=== PATIENT | male | born 1950 | race Hispanic/Latino ===

== ENCOUNTER 2019-07-24 23:12 | Inpatient (IN) | payer MEDICARE ==
[2019-07-25] MEDS ORDERED: Ondansetron ODT 4 MG TAB SL PRN (00:46)
[2019-07-25] MEDS ORDERED: Ondansetron PF 4 MG/2 ML Vial IVP PRN ×2 (00:46→01:25)
[2019-07-25] MEDS ORDERED: Acetaminophen 325 MG TAB PO PRN ×2 (00:46→01:25)
[2019-07-25 00:54] LABS: Troponin I 0.063 ng/mL (< 0.028)
[2019-07-25] MEDS ORDERED: Dextrose 50% Abboject 50 ML SYRINGE SLOW IVP PRN (01:25)
[2019-07-25] MEDS ORDERED: PROVENTIL INHALER 6.7 G (200 INHALATIONS) INH PRN (01:25)
[2019-07-25] MEDS ORDERED: HumaLOG 300 UNITS/3 ML VIAL SC PRN ×2 (01:25)
[2019-07-25] MEDS ORDERED: Guaifenesin DM 100-10/5 ML UDCUP PO PRN (01:25)
[2019-07-25] MEDS ORDERED: Senokot S 8.6-50 MG TAB PO PRN (01:25)
[2019-07-25] MEDS ORDERED: Bisacodyl 10 MG SUPP PR PRN (01:25)
[2019-07-25] MEDS ORDERED: Dextrose 5% in Water 1,000 ML IV PRN (01:25)
[2019-07-25] MEDS ORDERED: Potassium Chloride 20 MEQ TAB PO SCH (01:45)
--- NOTE | 2019-07-25 01:57 | HP ---
REASON FOR ADMISSION: Acute CHF exacerbation. HISTORY OF PRESENTING ILLNESS: The patient gives history of shortness of breath from last 3 days. He has also developed edema in lower extremities. The patient states he likes salt and usually restricts them, but for the holidays he used them. He sees Dr. Go. He has had a cardiac catheterization done in February, which was normal with no intervention done. Has cough with expectoration of white sputum. No fever. No complaints of chest pain or palpitation. Has some orthopnea at present. No PND. PAST MEDICAL AND SURGICAL HISTORY: History of CHF. The patient does not recall his ejection fraction. Hypertension, chronic atrial fibrillation, diabetes mellitus type 2. Cardiac cath in February of this year showed normal coronaries per patient, rotator cuff repair, history of colon cancer with likely hemicolectomy done in 2006, has had chemotherapy for the same and is in remission for it, osteoarthritis. CURRENT MEDICATIONS: The patient is on; 1. Hydrochlorothiazide 25 mg daily. 2. Glipizide 5 mg twice daily. 3. Fish oil 1000 mg daily. 4. Metformin 1000 mg twice daily. 5. Norvasc 10 mg daily. 6. Omeprazole 20 mg daily. 7. Atenolol 100 mg daily. 8. Xarelto 20 mg daily. 9. Hydralazine 25 mg 3 times daily. ALLERGIES: TO LEVAQUIN AND PENICILLIN. HE IS ALSO ALLERGIC TO INFLUENZA VACCINE. PERSONAL HISTORY: Quit smoking at the age of 22 years, has smoked for 10 years or so half pack a day when he was in his 20s. Does not abuse alcohol or drugs. Lives with his . FAMILY HISTORY: Both parents are . Mother at the age of 82, she had diabetes. Father at the age of 86, he had diabetes as well. The patient ambulates by himself. CODE STATUS: Full. Power of title attorney is his . REVIEW OF SYSTEMS: CONSTITUTIONAL: Negative for weight loss or gain, ability to conduct usual activities. SKIN: Negative for rash, itching. EYES: Negative for double vision, pain. ENT/MOUTH: Negative for nose bleeding, neck stiffness, pain, tenderness. CARDIOVASCULAR: Negative for palpitations, dyspnea on exertion, orthopnea. RESPIRATORY: Negative for shortness of breath, wheezing, cough, hemoptysis, fever or night sweats. GASTROINTESTINAL: Negative for poor appetite, abdominal pain, heartburn, nausea , vomiting, constipation, or diarrhea. GENITOURINARY: Negative for urgency, frequency, dysuria, nocturia. MUSCULOSKELETAL: Negative for pain, swelling. NEUROLOGIC/PSYCHIATRIC: Negative for anxiety, depression. ALLERGY/IMMUNOLOGIC: Negative for skin rash, bleeding tendency. PHYSICAL EXAMINATION: GENERAL: The patient is a 69-year-old male, who is currently not in any acute distress. VITAL SIGNS: Blood pressure 146/82, pulse 66 per minute, respiratory rate 20 per minute, temperature 99.7 degrees Fahrenheit, saturating 92% on 2 L nasal cannula. NECK: Supple. No elevated JVD. HEENT: Eyes; extraocular muscles intact. Pupils reacting to light. Oral cavity, mucous membranes are moist. No exudates or congestion. CARDIOVASCULAR: S1, S2 heard. Irregular rhythm. RESPIRATORY: Air entry 1+ bilateral. Scattered rales plus in the infrascapular area. ABDOMEN: Soft, bowel sounds heard. No tenderness, rigidity, or guarding. EXTREMITIES: 1+ peripheral edema. No calf tenderness. VASCULAR SYSTEM: Peripheral pulses 1+ bilateral. No ischemic ulcerations or gangrene. CENTRAL NERVOUS SYSTEM: No gross focal deficits noted. The patient is alert, awake, and oriented well. PSYCHIATRIC: The patient's mood is euthymic. No hallucinations or delusions. LABORATORY DATA: White count of 8.9, H and H 11 and 37, platelet count 167, MCV is 83 with 67% neutrophils. Potassium 3.3, BUN 23, creatinine 1.45, glucose 156. BNP 377, troponin I 0.01, second set 0.06. Chest x-ray done shows pulmonary vascular congestion. EKG done shows atrial fibrillation at 83 beats per minute. There is RBBB seen, also Q-waves in leads II, III, aVF and V3 to V6. CLINICAL IMPRESSION AND PLAN: The patient will be admitted to telemetry for acute congestive heart failure exacerbation, likely diastolic dysfunction. It is unclear as of now and we will obtain echo 2D Doppler for LV function. The patient will also be on Lasix 40 mg IV at 6 a.m. and 2 p.m. and small dose of aspirin. We will continue atenolol at 25 mg daily. Hold off on AVA and ARBs for now in view of creatinine 1.4, which might get worse with diuresis. We will continue aspirin, Xarelto, glipizide, metformin, DuoNeb q.6 hourly p.r.n., fish oil, and tizanidine as before. If needed, Cardiology consultation will be requested. The patient normally sees Dr. Go and he has had a recent cardiac cath done in February of this year , which was normal per patient. The patient likely needs a day or two of diuresis prior to discharge. We will continue to closely monitor him on telemetry. Job ID: [id number] [facility]
[2019-07-25] MEDS: Furosemide 40 MG/4 ML VIAL SLOW IVP SCH ×2 (04:58→14:09)
[2019-07-25 05:02] LABS: #Basophils 0.1 thou/uL (0.0-0.2); #Eosinphils 0.2 thou/uL (0.0-0.7); #Lymphocytes 2.1 thou/uL (1.20-3.40); #Monocytes 0.7 thou/uL (0.11-0.59); #Neutrophils 6.1 thou/uL (1.40-6.50); %Basophils 0.8 % (0.0-1.0); %Eosinophils 1.8 % (0.0-10.0); %Lymphocytes 22.8 % (21.0-51.0); %Monocytes 7.5 % (0.0-10.0); %Neutrophils 67.1 % (42.0-75.0); Mean Corpuscular HGB CONC 31.6 g/dL (32.0-36.0); Mean Corpuscular Hemoglobin 26.5 pg (27.0-31.0); Mean Corpuscular Volume 83.9 fL (78.0-98.0); Mean Platelet Volume 8.8 fL (7.4-10.4); Platelet Count 149 thou/uL (130-400); RBC Distribution Width 14.6 % (11.5-14.5); Red Blood Cell (RBC) Count 4.14 mill/uL (4.70-6.10); White Blood Cell (WBC) Count 9.1 thou/uL (4.8-10.8)
[2019-07-25 05:21] LABS: Anion Gap 14 mmol/L (10-20); BUN (Urea Nitrogen) 22 mg/dL (8.4-25.7); Calc. Creatinine Clearance 114 mL/min (70-130); Calcium 8.7 mg/dL (7.8-10.44); Carbon Dioxide 31 mmol/L (23-31); Chloride 101 mmol/L (98-107); Estimated GFR-MDRD 54; Glucose 154 mg/dL (83-110); Potassium 3.4 mmol/L (3.5-5.1); Sodium 143 mmol/L (136-145)
[2019-07-25] MEDS: metFORMIN 500 MG TAB PO SCH ×2 (09:02→16:16)
[2019-07-25] MEDS: Famotidine 20 MG TAB PO SCH ×2 (09:02→20:26)
[2019-07-25] MEDS: glipiZIDE 5 MG TAB PO SCH ×2 (09:03→16:16)
[2019-07-25] MEDS: Fish Oil 1,000 MG CAP PO SCH ×2 (09:03→20:26)
[2019-07-25] MEDS: Aspirin Chewable 81 MG TAB PO SCH (09:03)
[2019-07-25] MEDS: Atenolol 25 MG TAB PO SCH (09:03)
[2019-07-25] MEDS: Potassium Chloride 20 MEQ TAB PO SCH ×2 (09:03→16:16)
[2019-07-25] MEDS: Ferrous Sulfate 325 MG TAB PO SCH (09:03)
[2019-07-25] MEDS: Aspirin 81 mg Enteric Coated Tablet PO SCH (09:06)
--- NOTE | 2019-07-25 12:19 | PDOC.EVN ---
Event Note - Event Note Event Note: No new complaint. Feels better. no JVD. S1S2 Few rhonchi. Abdomen soft. +1 edema. Continue current therapy..
[2019-07-25] MEDS: Rivaroxaban 10 MG TAB PO SCH (16:16)
[2019-07-25] MEDS: tiZANidine HCl 4 MG TAB PO SCH (20:25)
[2019-07-26 04:40] LABS: Hemoglobin 10.6 g/dL (14.0-18.0); Platelet Count 134 thou/uL (130-400)
[2019-07-26] MEDS: Furosemide 40 MG/4 ML VIAL SLOW IVP SCH ×2 (05:43→14:49)
[2019-07-26] MEDS: Ferrous Sulfate 325 MG TAB PO SCH (07:59)
[2019-07-26] MEDS: Potassium Chloride 20 MEQ TAB PO SCH ×2 (07:59→17:00)
[2019-07-26] MEDS: metFORMIN 500 MG TAB PO SCH ×2 (08:00→17:00)
[2019-07-26] MEDS: glipiZIDE 5 MG TAB PO SCH ×2 (08:00→17:00)
[2019-07-26] MEDS: Aspirin 81 mg Enteric Coated Tablet PO SCH (08:56)
[2019-07-26] MEDS: Famotidine 20 MG TAB PO SCH ×2 (08:57→19:00)
[2019-07-26] MEDS: Fish Oil 1,000 MG CAP PO SCH ×2 (08:57→19:57)
[2019-07-26] MEDS: Atenolol 25 MG TAB PO SCH (08:58)
[2019-07-26] MEDS: Aspirin Chewable 81 MG TAB PO SCH (08:58)
--- NOTE | 2019-07-26 10:02 | PDOC.HOSPP ---
- Subjective Encounter Date: 07/26/19 Encounter Time: 15:20 Subjective: Patient reports markedly improved SOB since admission, was off O2 earlier and felt ok, but put back on by nurse. - Objective Vital Signs & Weight: Vital Signs (12 hours) Temp Pulse Resp BP Pulse Ox 07/26/19 07:52 98.0 F 62 19 123/66 92 L 07/26/19 04:00 97.8 F 63 25 H 142/68 H 94 L Weight Weight 333 lb 8 oz I&O: 07/25/19 07/26/19 07/27/19 06:59 06:59 06:59 Intake Total 460 1360 Output Total 500 1950 Balance -40 -590 Result Diagrams: 07/26/19 04:20 07/26/19 04:20 Additional Labs: Accuchecks 07/26/19 07/25/19 07/25/19 06:03 21:10 16:13 POC Glucose 142 H 129 H 124 H Hospitalist ROS - Review of Systems Constitutional: denies: fever, chills Respiratory: reports: cough, shortness of breath Cardiovascular: denies: chest pain, palpitations, orthopnea Gastrointestinal: denies: nausea, vomiting, abdominal pain Neurological: denies: weakness - Medication Medications: Active Medications Generic Name Dose Route Start Last Admin Trade Name Freq PRN Reason Stop Dose Admin Albuterol/Ipratropium 3 ml 07/25/19 01:25 07/25/19 19:43 Duoneb NEB 3 ml [id number] PRN Administration SOB &/or Wheezing Aspirin 81 mg 07/25/19 09:00 07/26/19 08:56 Ecotrin PO Not Given DAILY TATUM Aspirin 81 mg 07/25/19 09:00 07/26/19 08:58 Aspirin Chewable PO 81 mg DAILY TATUM Administration Atenolol 25 mg 07/25/19 09:00 07/26/19 08:58 Tenormin PO 25 mg DAILY TATUM Administration Famotidine 20 mg 07/25/19 09:00 07/26/19 08:57 Pepcid PO 20 mg BID TATUM Administration Ferrous Sulfate 325 mg 07/25/19 08:00 07/26/19 07:59 Feosol PO 325 mg QAM-WM TATUM Administration Fish Oil 1,000 mg 07/25/19 09:00 07/26/19 08:57 Fish Oil PO 1,000 mg BID TATUM Administration Furosemide 40 mg 07/25/19 06:00 07/26/19 05:43 Lasix SLOW IVP 40 mg 0600,1400 TATUM Administration Glipizide 5 mg 07/25/19 07:30 07/26/19 08:00 Glucotrol PO 5 mg BID-AC TATUM Administration Metformin HCl 1,000 mg 07/25/19 08:00 07/26/19 08:00 Glucophage PO 1,000 mg BID-WM TATUM Administration Potassium Chloride 20 meq 07/25/19 08:00 07/26/19 07:59 K-Dur PO 20 meq BID-WM TATUM Administration Rivaroxaban 20 mg 07/25/19 17:00 07/25/19 16:16 Xarelto PO 20 mg 1700 TATUM Administration Tizanidine HCl 8 mg 07/25/19 21:00 07/25/19 20:25 Zanaflex PO 8 mg HS TATUM Administration - Exam General Appearance: NAD Eye: anicteric sclera ENT: moist mucosa Heart: no murmur, no gallops, no rubs, irregular Respiratory: CTAB, no wheezes, no rales, no ronchi, normal chest expansion, no tachypnea Gastrointestinal: soft, non-tender, non-distended, normal bowel sounds Gastrointestinal - other findings: obese Psychiatric: normal affect, normal behavior, A&O x 3 Hosp A/P (1) Acute on chronic diastolic (congestive) heart failure Code(s): I50.33 - ACUTE ON CHRONIC DIASTOLIC (CONGESTIVE) HEART FAILURE Status : Acute (2) Chronic renal failure, stage 2 (mild) Code(s): N18.2 - CHRONIC KIDNEY DISEASE, STAGE 2 (MILD) Status: Chronic (3) Paroxysmal atrial fibrillation Code(s): I48.0 - PAROXYSMAL ATRIAL FIBRILLATION Status: Chronic (4) Chronic anticoagulation Code(s): Z79.01 - SPECIAL LIBRARIAN (CURRENT) USE OF ANTICOAGULANTS Status: Chronic (5) Diabetes type 2, controlled Code(s): E11.9 - TYPE 2 DIABETES MELLITUS WITHOUT COMPLICATIONS Status: Chronic (6) Hypertension Code(s): I10 - ESSENTIAL (PRIMARY) HYPERTENSION Status: Chronic - Plan out of bed/ambulate ECHO with normal EF, CHF is diastolic, improving with diuresis Creatinine at baseline and stable with diuresis, can institute AVA-I/ARB Home when back to baseline function, isn't usually on home O2
[2019-07-26] MEDS ORDERED: Losartan 25 MG TAB PO SCH (10:15)
[2019-07-26] MEDS: Rivaroxaban 10 MG TAB PO SCH (16:59)
[2019-07-26] MEDS: tiZANidine HCl 4 MG TAB PO SCH (19:58)
[2019-07-27 05:11] LABS: Anion Gap 11 mmol/L (10-20); BUN (Urea Nitrogen) 26 mg/dL (8.4-25.7); Calc. Creatinine Clearance 114 mL/min (70-130); Calcium 8.3 mg/dL (7.8-10.44); Carbon Dioxide 36 mmol/L (23-31); Chloride 97 mmol/L (98-107); Estimated GFR-MDRD 56; Glucose 135 mg/dL (83-110); Potassium 3.6 mmol/L (3.5-5.1); Sodium 140 mmol/L (136-145)
[2019-07-27] MEDS: Furosemide 40 MG/4 ML VIAL SLOW IVP SCH ×2 (05:52→14:42)
[2019-07-27 06:04] VITALS: BMI 42.5
[2019-07-27] MEDS: glipiZIDE 5 MG TAB PO SCH ×3 (07:22→16:39)
[2019-07-27] MEDS: Potassium Chloride 20 MEQ TAB PO SCH ×2 (07:22→16:38)
[2019-07-27] MEDS: metFORMIN 500 MG TAB PO SCH ×2 (07:22→16:38)
[2019-07-27] MEDS: Ferrous Sulfate 325 MG TAB PO SCH (07:22)
--- NOTE | 2019-07-27 08:52 | PDOC.HOSPP ---
- Subjective Encounter Date: 07/27/19 Encounter Time: 12:00 Subjective: Patient feeling better and off O2. Was having some pulses in the 50s and 60s over night, but higher this AM. - Objective Vital Signs & Weight: Vital Signs (12 hours) Temp Pulse Resp BP Pulse Ox 07/27/19 07:15 97.6 F 92 15 137/63 96 07/27/19 03:42 98.1 F 56 L 23 H 116/58 L 95 Weight Weight 331 lb I&O: 07/26/19 07/27/19 07/28/19 06:59 06:59 06:59 Intake Total 1360 950 Output Total 1950 1800 Balance -590 -850 Result Diagrams: 07/26/19 04:20 07/27/19 04:34 Additional Labs: Accuchecks 07/27/19 07/26/19 07/26/19 06:15 21:24 16:54 POC Glucose 129 H 138 H 126 H 07/26/19 10:29 POC Glucose 155 H Hospitalist ROS - Review of Systems Constitutional: denies: fever, chills Respiratory: denies: cough, dry, shortness of breath Cardiovascular: denies: chest pain, palpitations, orthopnea Gastrointestinal: denies: nausea, vomiting, abdominal pain - Medication Medications: Active Medications Generic Name Dose Route Start Last Admin Trade Name Freq PRN Reason Stop Dose Admin Albuterol/Ipratropium 3 ml 07/25/19 01:25 07/25/19 19:43 Duoneb NEB 3 ml [id number] PRN Administration SOB &/or Wheezing Aspirin 81 mg 07/25/19 09:00 07/26/19 08:56 Ecotrin PO Not Given DAILY TATUM Aspirin 81 mg 07/25/19 09:00 07/26/19 08:58 Aspirin Chewable PO 81 mg DAILY TATUM Administration Atenolol 25 mg 07/25/19 09:00 07/26/19 08:58 Tenormin PO 25 mg DAILY TATUM Administration Famotidine 20 mg 07/25/19 09:00 07/26/19 19:00 Pepcid PO 20 mg BID TATUM Administration Ferrous Sulfate 325 mg 07/25/19 08:00 07/27/19 07:22 Feosol PO 325 mg QAM-WM TATUM Administration Fish Oil 1,000 mg 07/25/19 09:00 07/26/19 19:57 Fish Oil PO 1,000 mg BID TATUM Administration Furosemide 40 mg 07/25/19 06:00 07/27/19 05:52 Lasix SLOW IVP 40 mg 0600,1400 TATUM Administration Glipizide 5 mg 07/25/19 07:30 07/27/19 07:22 Glucotrol PO 5 mg BID-AC TATUM Administration Metformin HCl 1,000 mg 07/25/19 08:00 07/27/19 07:22 Glucophage PO 1,000 mg BID-WM TATUM Administration Potassium Chloride 20 meq 07/25/19 08:00 07/27/19 07:22 K-Dur PO 20 meq BID-WM TATUM Administration Rivaroxaban 20 mg 07/25/19 17:00 07/26/19 16:59 Xarelto PO 20 mg 1700 TATUM Administration Tizanidine HCl 8 mg 07/25/19 21:00 07/26/19 19:58 Zanaflex PO 4 mg HS TATUM Administration - Exam General Appearance: NAD, awake alert Eye: anicteric sclera Heart: no murmur, no gallops, irregular Respiratory: CTAB, no wheezes, no rales, no ronchi Gastrointestinal: soft, non-tender, non-distended, normal bowel sounds Extremities: no edema Psychiatric: normal affect, normal behavior, A&O x 3 Hosp A/P (1) Acute on chronic diastolic (congestive) heart failure Code(s): I50.33 - ACUTE ON CHRONIC DIASTOLIC (CONGESTIVE) HEART FAILURE Status : Acute (2) Chronic renal failure, stage 2 (mild) Code(s): N18.2 - CHRONIC KIDNEY DISEASE, STAGE 2 (MILD) Status: Chronic (3) Paroxysmal atrial fibrillation Code(s): I48.0 - PAROXYSMAL ATRIAL FIBRILLATION Status: Chronic (4) Chronic anticoagulation Code(s): Z79.01 - DATACAP DEVELOPER (CURRENT) USE OF ANTICOAGULANTS Status: Chronic (5) Diabetes type 2, controlled Code(s): E11.9 - TYPE 2 DIABETES MELLITUS WITHOUT COMPLICATIONS Status: Chronic (6) Hypertension Code(s): I10 - ESSENTIAL (PRIMARY) HYPERTENSION Status: Chronic - Plan ECHO with normal EF, CHF is diastolic, improving with diuresis Creatinine at baseline and stable with diuresis, can institute AVA-I/ARB Home when back to baseline function, isn't usually on home O2 HR Mostly running low 60s, 50s once, with jumps to 90s. On atenolol at home which has been held since admit. Will try low dose Carvedilol instead and see if tolerates to control afib before d/c Likely home tomorrow and f/u with Abbi as outpatient.
[2019-07-27] MEDS ORDERED: Carvedilol 3.125 MG TAB PO SCH (09:00)
[2019-07-27] MEDS: Famotidine 20 MG TAB PO SCH ×2 (09:53→21:43)
[2019-07-27] MEDS: Atenolol 25 MG TAB PO SCH (09:53)
[2019-07-27] MEDS: Aspirin 81 mg Enteric Coated Tablet PO SCH (09:53)
[2019-07-27] MEDS: Losartan 25 MG TAB PO SCH (09:53)
[2019-07-27] MEDS: Fish Oil 1,000 MG CAP PO SCH ×2 (09:54)
[2019-07-27] MEDS: Aspirin Chewable 81 MG TAB PO SCH (09:55)
[2019-07-27] MEDS: Rivaroxaban 10 MG TAB PO SCH (16:38)
[2019-07-27] MEDS: Carvedilol 3.125 MG TAB PO SCH (16:39)
[2019-07-27] MEDS ORDERED: tiZANidine HCl 4 MG TAB PO SCH (22:00)
[2019-07-27] MEDS: tiZANidine HCl 4 MG TAB PO SCH (22:25)
[2019-07-28] MEDS: Furosemide 40 MG/4 ML VIAL SLOW IVP SCH (06:30)
--- NOTE | 2019-07-28 08:39 | PDOC.HOSPP ---
- Subjective Encounter Date: 07/28/19 Encounter Time: 09:00 Subjective: Patient without complaints. Ambulating the hallway without O2. Pulse holding up on carvedilol - Objective Vital Signs & Weight: Vital Signs (12 hours) Temp Pulse Resp BP Pulse Ox 07/28/19 03:26 98.4 F 76 20 148/65 H 95 Weight Weight 324 lb 3.2 oz I&O: 07/27/19 07/28/19 07/29/19 06:59 06:59 06:59 Intake Total 950 1200 Output Total 1800 1425 Balance -850 -225 Result Diagrams: 07/26/19 04:20 07/27/19 04:34 Additional Labs: Accuchecks 07/28/19 07/27/19 07/27/19 05:24 20:35 16:56 POC Glucose 103 180 H 123 H 07/27/19 10:38 POC Glucose 141 H Hospitalist ROS - Review of Systems Constitutional: denies: fever, chills Respiratory: denies: cough, shortness of breath Cardiovascular: denies: chest pain, palpitations Gastrointestinal: denies: nausea, vomiting, abdominal pain Neurological: denies: weakness - Medication Medications: Active Medications Generic Name Dose Route Start Last Admin Trade Name Freq PRN Reason Stop Dose Admin Albuterol/Ipratropium 3 ml 07/25/19 01:25 07/25/19 19:43 Duoneb NEB 3 ml [id number] PRN Administration SOB &/or Wheezing Aspirin 81 mg 07/25/19 09:00 07/27/19 09:53 Ecotrin PO 81 mg DAILY TATUM Administration Atenolol 25 mg 07/25/19 09:00 07/27/19 09:53 Tenormin PO 25 mg DAILY TATUM Administration Carvedilol 3.125 mg 07/27/19 17:00 07/27/19 16:39 Coreg PO 3.125 mg BID-WM TATUM Administration Famotidine 20 mg 07/25/19 09:00 07/27/19 21:43 Pepcid PO 20 mg BID TATUM Administration Ferrous Sulfate 325 mg 07/25/19 08:00 07/27/19 07:22 Feosol PO 325 mg QAM-WM TATUM Administration Fish Oil 1,000 mg 07/27/19 09:00 07/27/19 09:54 Fish Oil PO Not Given DAILY TATUM Furosemide 40 mg 07/25/19 06:00 07/28/19 06:30 Lasix SLOW IVP 40 mg 0600,1400 TATUM Administration Glipizide 5 mg 07/27/19 09:00 07/27/19 09:55 Glucotrol PO Not Given DAILY TATUM Losartan Potassium 50 mg 07/27/19 09:00 07/27/19 09:53 Cozaar PO 50 mg DAILY TATUM Administration Metformin HCl 1,000 mg 07/25/19 08:00 07/27/19 16:38 Glucophage PO 1,000 mg BID-WM TATUM Administration Potassium Chloride 20 meq 07/25/19 08:00 07/27/19 16:38 K-Dur PO 20 meq BID-WM TATUM Administration Rivaroxaban 20 mg 07/25/19 17:00 07/27/19 16:38 Xarelto PO 20 mg 1700 TATUM Administration - Exam General Appearance: NAD Eye: anicteric sclera ENT: moist mucosa Heart: RRR, no murmur, no gallops Respiratory: CTAB, no wheezes, no rales, no ronchi Gastrointestinal: soft, non-tender, non-distended, normal bowel sounds Psychiatric: normal affect, normal behavior, A&O x 3 Hosp A/P (1) Acute on chronic diastolic (congestive) heart failure Code(s): I50.33 - ACUTE ON CHRONIC DIASTOLIC (CONGESTIVE) HEART FAILURE Status : Acute (2) Chronic renal failure, stage 2 (mild) Code(s): N18.2 - CHRONIC KIDNEY DISEASE, STAGE 2 (MILD) Status: Chronic (3) Paroxysmal atrial fibrillation Code(s): I48.0 - PAROXYSMAL ATRIAL FIBRILLATION Status: Chronic (4) Chronic anticoagulation Code(s): Z79.01 - WATER CHEMIST (CURRENT) USE OF ANTICOAGULANTS Status: Chronic (5) Diabetes type 2, controlled Code(s): E11.9 - TYPE 2 DIABETES MELLITUS WITHOUT COMPLICATIONS Status: Chronic (6) Hypertension Code(s): I10 - ESSENTIAL (PRIMARY) HYPERTENSION Status: Chronic - Plan ECHO with normal EF, CHF is diastolic, improving with diuresis Creatinine at baseline and stable with diuresis, can institute AVA-I/ARB Back on room air HR Mostly running low 60s, 50s once, with jumps to 90s. On atenolol at home which has been held since admit. Will try low dose Carvedilol instead and see if tolerates to control afib before d/c-- HR on carvedilol now in 70s to 80s Home today and f/u with Abbi as outpatient.
[2019-07-28 09:18] VITALS: BP 112/56; TEMP 98
[2019-07-28] MEDS: Carvedilol 3.125 MG TAB PO SCH (09:19)
[2019-07-28] MEDS: Potassium Chloride 20 MEQ TAB PO SCH (09:19)
[2019-07-28] MEDS: metFORMIN 500 MG TAB PO SCH (09:19)
[2019-07-28] MEDS: Aspirin 81 mg Enteric Coated Tablet PO SCH (09:19)
[2019-07-28] MEDS: Fish Oil 1,000 MG CAP PO SCH (09:19)
[2019-07-28] MEDS: Losartan 25 MG TAB PO SCH (09:20)
[2019-07-28] MEDS: Ferrous Sulfate 325 MG TAB PO SCH (09:20)
[2019-07-28] MEDS: Famotidine 20 MG TAB PO SCH (09:20)
[2019-07-28] MEDS: Atenolol 25 MG TAB PO SCH (09:21)
[2019-07-28] MEDS: glipiZIDE 5 MG TAB PO SCH (09:32)
--- NOTE | 2019-07-28 14:40 | DIS ---
DATE OF ADMISSION: 07/25/2019 DATE OF DISCHARGE: 07/28/2019 PRIMARY CARE PHYSICIAN: Dr. Yariel Hearn. REASON FOR ADMISSION: CHF exacerbation. DISCHARGE DIAGNOSES: 1. Acute on chronic diastolic congestive heart failure. 2. Chronic renal failure stage 2. 3. Paroxysmal atrial fibrillation. 4. Chronic anticoagulation. 5. Diabetes mellitus type 2, controlled. 6. Hypertension. PROCEDURES: Echocardiogram showing ejection fraction of 55% to 60%. CONSULTATIONS: None. SUMMARY OF HOSPITAL COURSE: This is a 69-year-old man with history of congestive heart failure, follows with Dr. Go. He reported 3 days of shortness of breath and lower extremity edema. He came into the hospital, was found to be in acute congestive heart failure with a brain natriuretic peptide in the 300s. He also had atrial fibrillation, but it was well controlled rate lozano. The patient was diuresed in the hospital. He had improvement in his symptoms. Eventually weaned off oxygen. He did have some low pulse. His atenolol had to be held and eventually discontinued. He was started on a low dose of carvedilol, which controlled his heart rate without causing bradycardia. On the day of discharge, the patient was ambulating well in the hallways without oxygen and is being discharged to home. DISCHARGE MANAGEMENT: Discharged to home. FOLLOWUP: Follow up with Dr. Go as previously scheduled in 7 days and with primary care physician on the 6th of this month. ACTIVITY: As tolerated. DIET: Healthy heart, low-sodium fluid-restricted diet. MEDICATIONS: 1. Carvedilol 3.125 mg twice a day, 60 tablets dispensed. 2. Furosemide 20 mg daily, 30 tablets dispensed. 3. Losartan 50 mg daily, 30 tablets dispensed. 4. Aspirin 81 mg daily. 5. Amlodipine 10 mg daily. 6. Fish oil 1000 mg daily. 7. Glipizide 5 mg daily. 8. Metformin 1000 mg twice a day. 9. Omeprazole 20 mg daily. 10. Xarelto 20 mg daily. 11. Tizanidine 8 mg p.o. at night as needed. 12. Tramadol as needed for pain. The patient is to discontinue his hydrochlorothiazide, and I believe he was on lisinopril as well, he is to discontinue that along with discontinuing his atenolol. TIME SPENT: Arranging the details of this discharge took 35 minutes. Job ID: [id number]
[2019-07-28] MEDS ORDERED: tiZANidine HCl 4 MG TAB PO SCH (21:00)
== END 2019-07-28 13:08 | disposition home or self-care (01) | DRG 291 ==
LOC: ERS 23:12 → 2NO 07-25 00:31
PROVIDERS: ADMIT Internal Medicine; ATTEND Internal Medicine
DX: I13.0 Hypertensive heart and chronic kidney disease with heart failure and stage 1 through stage 4 chronic kidney disease, or unspecified chronic kidney disease (principal); I50.33 Acute on chronic diastolic (congestive) heart failure; N18.2 Chronic kidney disease, stage 2 (mild); E11.22 Type 2 diabetes mellitus with diabetic chronic kidney disease; Z90.49 Acquired absence of other specified parts of digestive tract; Z85.038 Personal history of other malignant neoplasm of large intestine; Z79.899 Other long term (current) drug therapy; Z88.0 Allergy status to penicillin; Z88.7 Allergy status to serum and vaccine; Z87.891 Personal history of nicotine dependence; Z79.01 Long term (current) use of anticoagulants; I48.0 Paroxysmal atrial fibrillation
CPT/HCPCS: 36415; 36416; 80048; 82565; 84443; 84484; 85014; 85018; 85025; 85049; 93306; 93798; 94640; 99285; J1940; J7620

== ENCOUNTER 2020-09-07 19:11 | Inpatient (IN) | payer MEDICARE ==
[2020-09-07] MEDS ORDERED: HYDROcodone/Acetaminophen 5/325 mg Tablet PO PRN (20:30)
[2020-09-07] MEDS ORDERED: Guaifenesin DM 100-10/5 ML UDCUP PO PRN (20:30)
[2020-09-07] MEDS ORDERED: cloNIDine 0.1 MG TAB PO PRN (20:30)
[2020-09-07] MEDS ORDERED: Sodium Chloride 0.9% 1,000 ML IV SCH (20:30)
[2020-09-07] MEDS ORDERED: hydrALAZINE 20 MG/ML VIAL SLOW IVP PRN (20:30)
[2020-09-07] MEDS ORDERED: Promethazine HCl 12.5 MG in Sodium Chloride 0.9% 50 ML IVPB PRN (20:30)
[2020-09-07] MEDS ORDERED: Ondansetron PF 4 MG/2 ML Vial IVP PRN (20:30)
[2020-09-07] MEDS ORDERED: Labetalol HCl 100 MG/20 ML VIAL SLOW IVP PRN (20:30)
[2020-09-07] MEDS ORDERED: Acetaminophen 325 MG TAB PO PRN (20:30)
[2020-09-07] MEDS ORDERED: Dextrose 5% in Water 1,000 ML IV PRN (20:32)
[2020-09-07] MEDS ORDERED: Dextrose 50% Abboject 50 ML SYRINGE SLOW IVP PRN (20:32)
--- NOTE | 2020-09-07 20:32 | PDOC.HHP ---
Hospitalist HPI renal failure, abdominal pain, abnormal abdominal imaging. History of Present Illness: Patient is a 70 year old male with PMH upper GI bleed due to polyp (now removed), T2DM w/ neuropathy, HTN, paroxysmal atrial fibrillation, diastolic CHF (EF 55-60 on echo 06/2019) who presents from rehab at [facility] for abdominal pain. Patient was originally admitted to rehab after hospitalization for acute renal failure. Patient originally had Cr 6.6, K 5.7, Ca 5.8, CT abdomen w/ bilateral hydronephrosis, renal failure improved with IVF and patient transferred to rehab for continued therapy. Today, patient seen by physician for reduced urine output. Labs revealed renal function again worsened, Cr 4.28, K 5.6, Na 133. today Ct A/p performed and revealed L hydroureteronephrosis concerning for underlying mass/urothelial cancer or L kidney cancer. There is also concern for extensive lymphangitis metastasis as well as osseous metastases. 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 Patient transferred here. 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 Currently patient feeling well, complains of reduced mobility and debility, chronic 7/10 abdominal pain, has history of hernia. Allergies/Adverse Reactions: Allergy/AdvReac Type Severity Reaction Status Date / Time levofloxacin [From Levaquin] Allergy Intermediate ITCHING Verified 08/31/20 17:49 Penicillins Allergy Verified 08/31/20 17:49 Influenza Virus Vaccines AdvReac Verified 08/31/20 17:49 Home Medications: Medication Instructions Recorded Confirmed Type Aspirin [Aspirin EC] 81 mg PO DAILY 07/23/16 08/31/20 History Fish Oil 1,000 mg PO DAILY 07/25/19 08/31/20 History Ferrous Sulfate 324 mg PO DAILY 08/27/20 08/31/20 History Gabapentin 300 mg PO TID 08/27/20 08/31/20 History Pantoprazole [Protonix] 40 mg PO DAILY 08/27/20 08/31/20 History Pravastatin Sodium 10 mg PO HS 08/27/20 08/31/20 History Amlodipine [Norvasc] 5 mg PO DAILY tab 08/31/20 08/31/20 Rx Magnesium Oxide 800 mg PO BID tab 08/31/20 08/31/20 Rx glipiZIDE [Glucotrol] 5 mg PO DAILY-AC tab 08/31/20 08/31/20 Rx Past History: PMHx: upper GI bleed due to polyp (now removed), T2DM w/ neuropathy, HTN, paroxysmal atrial fibrillation, diastolic CHF (EF 55-60 on echo 06/2019) PSHx: partial colectomy, shoulder surgery FHx: CAD in father, murmur in brother Social: former smoker, denies alcohol or drug use Hospitalist HPI ROS Constitutional: reports: weakness, malaise. denies: fever, chills, sweats, other Eyes: denies: pain, vision change, conjunctivae inflammation, eyelid inflamma tion, redness, other ENT: denies: ear pain, ear discharge, nose pain, nose discharge, nose congestion, mouth pain, mouth swelling, throat pain, throat swelling, other Respiratory: denies: cough, dry, shortness of breath, hemoptysis, SOB with excertion, pleuritic pain, sputum, wheezing, other Cardiovascular: denies: chest pain, palpitations, orthopnea, paroxysmal noc. dyspnea, edema, light headedness, other Gastrointestinal: reports: abdominal pain. denies: nausea, vomiting, diarrhea, constipation, melena, hematochezia, other Genitourinary: denies: dysuria, frequency, incontinence, hematuria, retention, other Musculoskeletal: denies: neck pain, shoulder pain, arm pain, back pain, hand pain, leg pain, foot pain, other Skin: denies: rash, lesions, meka, bruising, other Neurological: denies: weakness, numbness, incoordination, change in speech, confusion, seizures, other All other systems reviewed; all pertinent +/- noted in HPI/Subj Hospitalist Exam General Appearance: NAD, awake alert Eye: PERRL, anicteric sclera ENT: normocephalic atraumatic, no oropharyngeal lesions, moist mucosa Neck: supple, symmetric, no JVD, no thyromegaly, no lymphadenopathy, no carotid bruit Heart: RRR, no murmur, no gallops, no rubs, normal peripheral pulses Respiratory: CTAB, no wheezes, no rales, no ronchi, normal chest expansion, no tachypnea, normal percussion Gastrointestinal: soft, non-distended, normal bowel sounds, no palpable masses, no hepatomegaly, no splenomegaly, no bruit Gastrointestinal - other findings: mild diffuse abdominal pain, no guarding or rebound Extremities: no cyanosis, no clubbing, no edema Skin: normal turgor, no lesions, no rashes Neurological: cranial nerve grossly intact, normal sensation to touch, no weakness, no focal deficits, no new deficit Musculoskeletal: normal tone, normal strength, no muscle wasting Psychiatric: normal affect, normal behavior, A&O x 3 Hospitalist Results Result Diagrams: 09/07/20 20:46 09/07/20 20:46 Additional comment: outside hospital labs, physician/transfer documents, imaging reports reviewed, see HPI and patient chart for relevant information. Hospitalist H&P A/P Plan: Patient is a 70 year old male with PMH upper GI bleed due to polyp (now removed), T2DM w/ neuropathy, HTN, paroxysmal atrial fibrillation, diastolic CHF (EF 55-60 on echo 06/2019) who presents from rehab at [facility] for abdominal pain. # abdominal pain # imaging concerning for metastatic kidney vs urothelial cancer vs liposarcoma w/ osseous and lymphangitic metastasis # hydronephrosis - admit to floor in oncology wing - bladder scan, place bhagat if needed - consult urology, nephrology, consult oncology once diagnosis obtained # acute renal failure # hyperkalemia - concerning for obstruction given mass - bladder scan, place bhagat if needed - consult urology and nephrology - monitor potassium by rechecking BMP in AM, may need intervention if continues to rise - telemetry # debility - continue PT/OT, may need to go back to rehab on discharge based on therapy recommendations # history of GI bleed and removed polyp - noted, no recent GIB noted # T2DM w/ neuropathy - continue gabapentin - SSI - diabetic diet # history of Afib - cardiac cath lab radiology technologist - continue home asa, DVT ppx heparin # HTN - monitor BP, PRN medications ordered, continue norvasc # history of diastolic CHF - continue IVF x 2L, monitor fluid status DVT/GI ppx full code
[2020-09-07 21:09] LABS: #Eosinphils 0.1 thou/uL (0.0-0.7); #Lymphocytes 0.9 thou/uL (1.20-3.40); #Monocytes 0.6 thou/uL (0.11-0.59); #Neutrophils 7.6 thou/uL (1.40-6.50); %Eosinophils 1.2 % (0.0-10.0); %Lymphocytes 9.4 % (21.0-51.0); %Monocytes 6.8 % (0.0-10.0); %Neutrophils 82.6 % (42.0-75.0); Hemoglobin 10.8 g/dL (14.0-18.0); Mean Corpuscular Volume 83.8 fL (78.0-98.0); Mean Platelet Volume 9.1 fL (7.4-10.4); Platelet Count 180 thou/uL (130-400); RBC Distribution Width 14.1 % (11.5-14.5); Red Blood Cell (RBC) Count 4.17 mill/uL (4.70-6.10); White Blood Cell (WBC) Count 9.1 thou/uL (4.8-10.8)
[2020-09-07 21:13] LABS: Anion Gap 16 mmol/L (10-20); BUN (Urea Nitrogen) 78 mg/dL (8.4-25.7); Calc. Creatinine Clearance 0 mL/min (70-130); Calcium 9.3 mg/dL (7.8-10.44); Carbon Dioxide 21 mmol/L (23-31); Chloride 105 mmol/L (98-107); Glucose 196 mg/dL (83-110); Potassium 5.7 mmol/L (3.5-5.1); Sodium 136 mmol/L (136-145)
[2020-09-07 21:18] LABS: INR-International Normal Ratio 1.2; Prothrombin Time 15.9 sec (12.0-14.7)
[2020-09-07] MEDS: Heparin 5,000 UNITS/ML VIAL SC SCH (22:16)
[2020-09-07] MEDS: Famotidine 20 MG TAB PO SCH (22:16)
[2020-09-08] MEDS: Sodium Chloride 0.9% 1,000 ML IV SCH ×2 (00:30→06:59)
[2020-09-08 02:18] VITALS: BMI 41.2
[2020-09-08] MEDS ORDERED: glipiZIDE 5 MG TAB PO SCH (07:30)
[2020-09-08 08:11] LABS: Hemoglobin A1c 8.5 % (4.0-6.0)
[2020-09-08 08:12] LABS: #Monocytes 0.8 thou/uL (0.11-0.59); #Neutrophils 10.7 thou/uL (1.40-6.50); %Basophils 0.3 % (0.0-1.0); %Eosinophils 0.2 % (0.0-10.0); %Lymphocytes 7.8 % (21.0-51.0); %Monocytes 6.4 % (0.0-10.0); %Neutrophils 85.3 % (42.0-75.0); Hemoglobin 10.7 g/dL (14.0-18.0); Mean Corpuscular HGB CONC 31.4 g/dL (32.0-36.0); Mean Corpuscular Hemoglobin 26.3 pg (27.0-31.0); Mean Corpuscular Volume 83.6 fL (78.0-98.0); Mean Platelet Volume 8.9 fL (7.4-10.4); Platelet Count 172 thou/uL (130-400); RBC Distribution Width 13.9 % (11.5-14.5); Red Blood Cell (RBC) Count 4.06 mill/uL (4.70-6.10); White Blood Cell (WBC) Count 12.6 thou/uL (4.8-10.8)
[2020-09-08 08:27] LABS: ALT (SGPT) 19 U/L (8-55); AST (SGOT) 23 U/L (5-34); Albumin 3.2 g/dL (3.4-4.8); Alkaline Phosphatase 142 U/L (40-110); Anion Gap 16 mmol/L (10-20); BUN (Urea Nitrogen) 73 mg/dL (8.4-25.7); Bilirubin, Direct 0.3 mg/dL (0.1-0.3); Bilirubin, Total 0.4 mg/dL (0.2-1.2); Calc. Creatinine Clearance 30 mL/min (70-130); Calcium 9.4 mg/dL (7.8-10.44); Carbon Dioxide 19 mmol/L (23-31); Chloride 107 mmol/L (98-107); Glucose 148 mg/dL (83-110); Magnesium 2.2 mg/dL (1.6-2.6); Phosphorus 4.7 mg/dL (2.3-4.7); Protein, Total 7.3 g/dL (5.8-8.1); Sodium 136 mmol/L (136-145)
[2020-09-08] MEDS: Amlodipine 5 MG TAB PO SCH (08:42)
[2020-09-08] MEDS: Gabapentin 300 MG CAP PO SCH ×2 (08:43→22:57)
[2020-09-08] MEDS: Heparin 5,000 UNITS/ML VIAL SC SCH (08:44)
[2020-09-08] MEDS: Polyethylene Glycol 3350 17 GM Packet PO SCH (08:46)
[2020-09-08] MEDS ORDERED: Aspirin 81 mg Enteric Coated Tablet PO SCH (09:00)
[2020-09-08] MEDS ORDERED: Sodium Bicarb 50 MEQ/50 ML VIAL IVP SCH (09:45)
[2020-09-08] MEDS ORDERED: Sodium Bicarb 50 MEQ/50 ML Abboject 8.4% SYRINGE IVP SCH (10:00)
[2020-09-08] MEDS ORDERED: Furosemide 40 MG/4 ML VIAL SLOW IVP SCH (10:45)
--- NOTE | 2020-09-08 11:48 | CON ---
DATE OF CONSULTATION: REASON FOR CONSULTATION: Hyperkalemia and elevated creatinine. HISTORY OF PRESENT ILLNESS: This is a 70-year-old gentleman with a history of extensive cancer in the abdomen, with hydronephrosis and renal cell cancer, who presented to the hospital for decreasing urine output and a potassium of 6 and a creatinine, which has risen to 4.6. His prior home baseline was 3.7. The patient denies any nausea, vomiting, or chest pain. Initially, the patient refused dialysis, has changed his mind. PAST MEDICAL HISTORY: Significant for GI bleed, atrial fibrillation, congestive heart failure, renal cell cancer bilateral hydronephrosis, diabetes mellitus, obesity, colectomy, and shoulder surgery. SOCIOECONOMIC HISTORY: No alcohol or drug abuse. FAMILY HISTORY: Negative for ESRD. ALLERGIES: REVIEWED. MEDICATIONS: Home medications list reviewed. Hospital medications list reviewed. REVIEW OF SYSTEMS: Fifteen-point review of system was performed and negative except for positives noted above. HEENT: Eyes intact, no diplopia. Ears: No hearing loss or earache. Nose: No discharge or bleeding. CHEST: No cough or phlegm. ABDOMEN: No nausea or vomiting. GENITOURINARY: No hematuria. No Whitley catheter. MUSCULOSKELETAL: No low back pain. No joint swelling or pain. NEUROLOGICAL: No syncope. No seizures. SKIN: No complaints of rash or itching. PSYCHIATRIC: No depression. CONSTITUTIONAL: No weight loss or loss of appetite. PHYSICAL EXAMINATION: GENERAL: The patient is awake and alert. The patient is in moderate distress. VITAL SIGNS: Afebrile, pulse 75, breathing is 16, and blood pressure was 138/65. HEENT: Head normocephalic and atraumatic. Eyes intact, no ulcers. Nose intact, no ulcers. Ears intact, no ulcers. NECK: Supple. No JVD. CHEST: Symmetrical and clear. CARDIOVASCULAR: Shows S1 and S2, no rub, no murmur. GASTROINTESTINAL: Abdomen is soft, bowel sounds positive. EXTREMITIES: Show no edema or ulcers. SKIN: Shows no rash or petechiae. MUSCULOSKELETAL: Shows no joint swelling or stiffness. GENITOURINARY: Shows no Whitley or CVA tenderness. NEUROLOGIC: Motor intact. Cranial nerves intact. LABORATORY DATA: Show potassium 6, bicarb 19. ASSESSMENT AND PLAN: 1. Acute kidney injury with chronic kidney disease due to bilateral hydronephrosis. I would recommend urgent Interventional Radiology consultation for nephrostomy. 2. Hyperkalemia. Plan dialysis. Surgery will be consulted. 3. Anemia, stable. 4. Medications based on GFR are appropriate. I would recommend the patient be transferred to telemetry unit. Job ID: [id number]
[2020-09-08 13:57] LABS: HBSAg Index 0.24 S/CO (0-0.99); Hep B Surf Ag Non-Reactive S/CO (NonReactive)
--- NOTE | 2020-09-08 14:00 | OP ---
DATE OF PROCEDURE: 09/08/2020 PREOPERATIVE DIAGNOSIS: Acute renal failure. PROCEDURE PERFORMED: Trialysis dialysis catheter placement, right femoral vein. INDICATIONS: This is a 70-year-old male in acute renal failure with elevated potassium, needs urgent dialysis. FINDINGS: Good backflow of venous blood. J-wire threaded easily. Each of the ports aspirated with good backflow of venous blood. DESCRIPTION OF PROCEDURE: After informed consent was obtained, the patient was placed in the supine position. His groin area was prepped and draped in usual fashion. Local anesthesia was infiltrated subcutaneously and deep. An introducer needle was inserted into the right femoral vein with good backflow of venous blood. A J-wire threaded easily. The skin was incised with an 11 blade and a series of dilators used over the wire. Then, the Trialysis catheter was inserted over the wire. Each of the ports aspirated. Good backflow of venous blood, flushed with saline. The catheter was sutured in place with 3-0 nylon suture. Sterile bandage applied. The patient tolerated the procedure well. Job ID: [id number]
--- NOTE | 2020-09-08 14:57 | CON ---
DATE OF CONSULTATION: 09/08/2020 SERVICES: Urology. CONSULTING: Hospitalist, consulted Dr. Mcrae. REASON FOR CONSULTATION: Renal failure with hydronephrosis and possible metastatic disease. HISTORY OF PRESENT ILLNESS: Mr. Gonsalez is a 70-year-old white male who is coming into the hospital secondary to worsening renal failure. He initially was seen at an outside hospital and was found to have worsening renal insufficiency and renal failure. There were concerns about being unable to manage him at that facility, so he was transferred to [facility]. Upon arrival here, he was noted to have a significantly elevated creatinine up to 4.63 with an elevated potassium of 5.7. Recheck of the potassium went up to 6. There was a significant concern about possible arrhythmias and worsening renal failure. He underwent a CT scan on September 07 without contrast, which demonstrated moderate left hydronephrosis with urothelial thickening and stranding at the level of the pelvic brim with a possible concern of an underlying mass or urothelial carcinoma in that location. There was also extensive metastatic retroperitoneal lymphadenopathy as well as internal and external iliac change adenopathy with extensive osseous metastatic disease. There is also a solid mass superior to the left kidney, which may reflect underlying malignancy. There was also retroperitoneal right infrarenal soft tissue mass concerning for a low-grade liposarcoma. I was consulted for further assistance regarding the urothelial enhancement, hydronephrosis, and renal failure as well as the metastatic disease. I attempted to discuss things with the patient, but unfortunately, the patient is relatively obtunded and not answering questions appropriately. He frequently drifts off to sleep. I spoke with the daughter on the phone, who is currently the patient's power of banking attorney. I did speak with the as well, but the stated that she would rather the eldest daughter make the medical decisions. The daughter wants full treatment workup and full code for the patient. He currently received a Trialysis catheter to start emergent dialysis for his hyperkalemia. On discussing his history with the daughter, the daughter states that he is a nonsmoker currently, but used to smoke in the past. She has not noticed or heard of any blood in the urine from his standpoint. He does not have any known significant voiding difficulties to her knowledge. ALLERGIES: 1. LEVOFLOXACIN. 2. PENICILLIN. 3. INFLUENZA VACCINE. HOME MEDICATIONS: 1. Aspirin. 2. Fish oil. 3. Iron. 4. Gabapentin. 5. Protonix. 6. Pravastatin. 7. Amlodipine. 8. Magnesium oxide. 9. Glipizide. PAST MEDICAL HISTORY: 1. History of GI bleed. 2. Type 2 diabetes mellitus. 3. Hypertension. 4. Atrial fibrillation. 5. Diastolic heart failure. 6. Chronic kidney disease. 7. Diabetic neuropathy. 8. Hyperlipidemia. PAST SURGICAL HISTORY: 1. Partial colectomy. 2. Shoulder surgery. FAMILY HISTORY: Significant for coronary artery disease. SOCIAL HISTORY: The patient is a former smoker, but apparently quit. He denies alcohol or drug use. REVIEW OF SYSTEMS: A 12-point review of systems was unable to be obtained from the patient due to his obtunded state currently. PHYSICAL EXAMINATION: GENERAL: The patient is somewhat somnolent. He does arouse easily and answers some questions, but then falls back asleep. He is morbidly obese. HEENT: Normocephalic, atraumatic. Pupils are symmetric and round. Sclerae nonicteric. Trachea midline. CARDIOVASCULAR: Irregularly irregular rhythm. Normal S1, S2. Symmetric pulses. CHEST: Nonlabored breathing. ABDOMEN: Obese, abdomen with a well-healed midline scar without hernia. Soft. No obvious masses. No guarding or rebound. Nonpalpable bladder. : The patient is without a current catheter. There are no focal abnormalities on the penis or testicles. The rectal exam was deferred. EXTREMITIES: Trace edema bilaterally. Otherwise, no clubbing or cyanosis. MUSCULOSKELETAL: No obvious joint deformities or joint erythema noted. No muscle wasting. NEUROLOGIC: The patient has gotten significant lower extremity weakness. He can only mildly raise his legs and move his extremities laterally, but not well against gravity. SKIN: No rashes or lesions. Good turgor. LABORATORY EVALUATION: A full set of labs are in the [facility] system which I have reviewed. Of note, the patient's current white count is 12.6, hemoglobin 10.7, INR 1.2. Creatinine is 4.49 with a potassium of 6, alkaline phosphatase of 142. Last A1c is 8.5%, calcium of 9.4. CT done September 07 without contrast of the abdomen and pelvis demonstrates partial duplication of the left renal collecting system with moderate left hydroureteronephrosis and urothelial thickening at the level of the pelvic brim where there is an abrupt transition to a normal caliber, possible underlying urothelial mass at that location. There is extensive metastatic retroperitoneal periaortic and iliac adenopathy as well as extensive osseous metastatic disease primarily on the spine. 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 ASSESSMENT AND PLAN: A 70-year-old white male with what appears to be extensive metastatic disease with lymphadenopathy and osseous metastatic disease with a possible transition point in the ureter. It is certainly possible the patient may have urothelial carcinoma versus ureteral stricturing. However, the degree of hydronephrosis bilaterally is not extremely impressive. This certainly would not necessarily account for the extreme elevation in the patient's creatinine and hyperkalemia. I suspect he has underlying kidney dysfunction and potentially a [id number] obstruction, primarily on the left side, it maybe mild on the right side. At the current time, I am not sure that the patient has urothelial carcinoma, although it is certainly possible. The ureteroscopy can be employed, but I would suspect that the patient may have liposarcoma, which is metastatic and would be higher on the differential. If possible, I would recommend attempted biopsy of the retroperitoneal mass, which is suspicious for the liposarcoma. If the mass is unable to be biopsied by Interventional Radiology, then we can certainly consider a cystoscopy with ureteroscopy and potential biopsy of the lesion within the ureter. If urothelial cancer was discovered within the ureter and a small lesion, this would not necessarily explain the extensive metastatic disease, which is present on this patient, and he probably will still need a biopsy of either a bone metastasis or lymph node. Therefore, I would recommend that the better approach would be to attempt to biopsy of the retroperitoneal mass versus a bone lesion or pelvic lymph node if possible. If this is unable to be performed, then I will consider cystoscopic biopsy potentially on Friday or Friday. Once the patient has been stabilized from an electrolyte standpoint, at the current time, the most pressing matter is his hyperkalemia and renal failure, and the patient is going for dialysis, which I think is reasonable. Once that is done, then a tissue diagnosis would be the next priority, which again would be best obtained through Interventional Radiology if possible. I will continue to follow. If the patient was diagnosed with a liposarcoma, I would involve Medical Oncology to discuss long-term prognosis as I am not sure ureteral stenting or placement of a nephrostomy tube would be significantly beneficial in this individual given that the degree of hydronephrosis is not that significant on my evaluation. If necessary, we can discuss this further later. Job ID: [id number]
--- NOTE | 2020-09-08 15:36 | PDOC.HOSPP ---
- Subjective Encounter Date: 09/08/20 Encounter Time: 13:15 Subjective: not in distress, no palp or chest pain has sob - Objective Vital Signs & Weight: Vital Signs (12 hours) Temp Pulse Resp BP BP Pulse Ox 09/08/20 12:00 98.6 F 70 20 158/70 H 96 09/08/20 08:42 76 138/65 09/08/20 08:00 98.1 F 78 20 138/65 94 L 09/08/20 04:58 98.5 F 71 18 172/78 H 95 09/08/20 04:34 71 Weight Admit Weight 312 lb 9.6 oz Weight 312 lb 9.6 oz I&O: 09/07/20 09/08/20 09/09/20 06:59 06:59 06:59 Intake Total 1360 Output Total 500 Balance -500 1360 Result Diagrams: 09/08/20 07:57 09/08/20 07:57 Additional Labs: Accuchecks 09/08/20 09/08/20 09/07/20 10:52 05:19 21:23 POC Glucose 147 H 145 H 180 H Hospitalist ROS - Medication Medications: Active Medications Generic Name Dose Route Start Last Admin Trade Name Freq PRN Reason Stop Dose Admin Amlodipine Besylate 5 mg 09/08/20 09:00 09/08/20 08:42 Amlodipine 5 Mg Tab PO 5 mg DAILY TATUM Administration Aspirin 81 mg 09/08/20 09:00 09/08/20 08:43 Aspirin 81 Mg Enteric Coated Tablet PO 81 mg DAILY TATUM Administration Famotidine 20 mg 09/07/20 21:00 09/07/20 22:16 Famotidine 20 Mg Tab PO 20 mg 2100 TATUM Administration Gabapentin 300 mg 09/08/20 09:00 09/08/20 08:43 Gabapentin 300 Mg Cap PO 300 mg BID TATUM Administration Heparin Sodium (Porcine) 5,000 units 09/07/20 21:00 09/08/20 08:44 Heparin 5,000 Units/Ml Vial SC 5,000 units BID TATUM Administration Hydralazine HCl 10 mg 09/07/20 20:30 09/08/20 04:34 Hydralazine 20 Mg/Ml Vial SLOW IVP 10 mg Q6H PRN Administration SBP GREATER THAN 160 Pantoprazole Sodium 40 mg 09/08/20 09:00 09/08/20 08:46 Pantoprazole 40 Mg Tab PO 40 mg DAILY TATUM Administration Polyethylene Glycol 17 gm 09/08/20 09:00 09/08/20 08:46 Polyethylene Glycol 3350 17 Gm Packet PO 17 gm DAILY TATUM Administration Hospitalist Exam Vitals: Vital Signs (12 hours) Temp Pulse Resp BP BP Pulse Ox 09/08/20 12:00 98.6 F 70 20 158/70 H 96 09/08/20 08:42 76 138/65 09/08/20 08:00 98.1 F 78 20 138/65 94 L 09/08/20 04:58 98.5 F 71 18 172/78 H 95 09/08/20 04:34 71 Weight Admit Weight 312 lb 9.6 oz Weight 312 lb 9.6 oz General Appearance: awake alert, ill appearing Eye: anicteric sclera ENT: no oropharyngeal lesions, dry oral mucosa Neck: supple, no JVD Heart: RRR, no murmur Respiratory: no wheezes, no rales, rhonchi Gastrointestinal: soft, non-tender, non-distended, normal bowel sounds Extremities: no cyanosis, no edema Neurological: cranial nerve grossly intact, no focal deficits Hosp A/P (1) Metastatic disease Code(s): C79.9 - SECONDARY MALIGNANT NEOPLASM OF UNSPECIFIED SITE Status: Suspected Qualifiers: Area of secondary neoplastic involvement: unspecified site Qualified Code(s): C79.9 - Secondary malignant neoplasm of unspecified site (2) Acute kidney failure Status: Acute (3) Anemia of chronic disease Code(s): D63.8 - ANEMIA IN OTHER CHRONIC DISEASES CLASSIFIED ELSEWHERE Status: Chronic (4) CAD (coronary artery disease) Code(s): I25.10 - ATHSCL HEART DISEASE OF [place] CORONARY ARTERY W/O ANG PCTRS Status: Chronic Qualifiers: Coronary Disease-Associated Artery/Lesion type: [place] artery [place] vs. transplanted heart: [place] heart Associated angina: without angina Qualified Code(s): I25.10 - Atherosclerotic heart disease of [place] coronary artery without angina pectoris (5) Diabetes type 2, controlled Code(s): E11.9 - TYPE 2 DIABETES MELLITUS WITHOUT COMPLICATIONS Status: Chronic Qualifiers: Diabetes mellitus exterminator helper termite insulin use: without usp use Diabetes mellitus complication status: with kidney complications Diabetes mellitus complication detail: with chronic kidney disease Chronic kidney disease stage: stage 3 (moderate) Qualified Code(s): E11.22 - Type 2 diabetes mellitus with diabetic chronic kidney disease; N18.30 - Chronic kidney disease, stage 3 unspecified (6) Hypertension Code(s): I10 - ESSENTIAL (PRIMARY) HYPERTENSION Status: Chronic Qualifiers: Hypertension type: essential hypertension Qualified Code(s): I10 - Essential (primary) hypertension (7) Morbid obesity with BMI of 40.0-44.9, adult Code(s): E66.01 - MORBID (SEVERE) OBESITY DUE TO EXCESS CALORIES; Z68.41 - BODY MASS INDEX [BMI]40.0-44.9, ADULT Status: Chronic (8) Paroxysmal atrial fibrillation Code(s): I48.0 - PAROXYSMAL ATRIAL FIBRILLATION Status: Chronic (9) Hyperkalemia Code(s): E87.5 - HYPERKALEMIA Status: Acute (10) Physical deconditioning Code(s): R53.81 - OTHER MALAISE Status: Acute (11) Metabolic acidosis Code(s): E87.2 - ACIDOSIS Status: Acute (12) left mild hydronephrosis Status: Acute - Plan is on norvasc, nebs aspirin, neurontin, zocor and iv fluids will be starting HD likely IR biopsy of either lymph node or skeletal mets on friday deconditioning, unclear if he can ambulate, will get PT eval will be on coverage for now, dc glipizide in view of aysha d/w , plan is for IR to biospy on friday, if IR cannot access tissue then will do cysto/ureteroscopy if pt is stable on friday. gave full update to patients and daughter over phone. overall prognosis is guarded
[2020-09-08] MEDS ORDERED: Heparin 10,000 UNITS/ 10 ML VIAL ONE (16:49)
[2020-09-08 20:57] LABS: Anion Gap 14 mmol/L (10-20); BUN (Urea Nitrogen) 39 mg/dL (8.4-25.7); Calc. Creatinine Clearance 44 mL/min (70-130); Calcium 8.8 mg/dL (7.8-10.44); Carbon Dioxide 24 mmol/L (23-31); Chloride 102 mmol/L (98-107); Glucose 240 mg/dL (83-110); Potassium 4.1 mmol/L (3.5-5.1); Sodium 136 mmol/L (136-145)
[2020-09-08] MEDS: Simvastatin 5 MG TAB PO SCH (22:57)
[2020-09-08] MEDS: Famotidine 20 MG TAB PO SCH (22:57)
[2020-09-08] MEDS: HumaLOG 300 UNITS/3 ML VIAL SC PRN (22:57)
[2020-09-09 03:58] LABS: #Eosinphils 0.1 thou/uL (0.0-0.7); #Lymphocytes 1.3 thou/uL (1.20-3.40); #Monocytes 0.9 thou/uL (0.11-0.59); #Neutrophils 7.9 thou/uL (1.40-6.50); %Basophils 0.3 % (0.0-1.0); %Eosinophils 0.9 % (0.0-10.0); %Lymphocytes 12.6 % (21.0-51.0); %Monocytes 9.1 % (0.0-10.0); %Neutrophils 77.2 % (42.0-75.0); Hemoglobin 11.1 g/dL (14.0-18.0); Mean Corpuscular HGB CONC 31.6 g/dL (32.0-36.0); Mean Corpuscular Hemoglobin 26.6 pg (27.0-31.0); Mean Corpuscular Volume 84.2 fL (78.0-98.0); Mean Platelet Volume 8.8 fL (7.4-10.4); Platelet Count 185 thou/uL (130-400); RBC Distribution Width 14.1 % (11.5-14.5); Red Blood Cell (RBC) Count 4.17 mill/uL (4.70-6.10); White Blood Cell (WBC) Count 10.2 thou/uL (4.8-10.8)
[2020-09-09 04:25] LABS: Anion Gap 16 mmol/L (10-20); BUN (Urea Nitrogen) 41 mg/dL (8.4-25.7); Calc. Creatinine Clearance 40 mL/min (70-130); Calcium 9.2 mg/dL (7.8-10.44); Carbon Dioxide 23 mmol/L (23-31); Chloride 102 mmol/L (98-107); Glucose 138 mg/dL (83-110); Potassium 4.4 mmol/L (3.5-5.1); Sodium 137 mmol/L (136-145)
[2020-09-09] MEDS: Gabapentin 300 MG CAP PO SCH ×2 (08:37→21:16)
[2020-09-09] MEDS: Polyethylene Glycol 3350 17 GM Packet PO SCH (08:37)
[2020-09-09] MEDS: Amlodipine 5 MG TAB PO SCH (08:37)
[2020-09-09] MEDS ORDERED: Aspirin 81 mg Enteric Coated Tablet PO SCH (09:00)
--- NOTE | 2020-09-09 12:37 | PRG ---
DATE OF SERVICE: 09/09/2020 SUBJECTIVE: A 70-year-old gentleman, being seen for end-stage renal disease. The patient denies any nausea, vomiting, or chest pain. OBJECTIVE: GENERAL: The patient is awake, alert. VITAL SIGNS: Afebrile, pulse 85, breathing 16, blood pressure 128/60. HEENT: Head normocephalic and atraumatic. Eyes intact, no ulcers. Nose intact, no ulcers. Ears intact, no ulcers. Neck: Supple. No JVD. Chest: Symmetrical and clear. Cardiovascular: Shows S1 and S2, no rub, no murmur. Gastrointestinal: Abdomen is soft, bowel sounds positive. Extremities: Show no edema or ulcers. Skin: Shows no rash or petechiae. Musculoskeletal: Shows no joint swelling or stiffness. Genitourinary: Shows no Whitley or CVA tenderness. Neurologic: Motor intact. Cranial nerves intact. LABORATORY DATA: Reviewed. ASSESSMENT AND PLAN: 1. Chronic kidney disease stage 6. Plan dialysis as needed. 2. Hyperkalemia, stable. 3. Anemia, stable. 4. Medication based on GFR appropriate. Job ID: [id number]
[2020-09-09] MEDS: HumaLOG 300 UNITS/3 ML VIAL SC PRN (12:50)
--- NOTE | 2020-09-09 14:23 | PDOC.HOSPP ---
- Subjective Encounter Date: 09/09/20 Encounter Time: 13:15 Subjective: is more awake this am, responds well to verbal stimuli is eating well has not amb yet - Objective Vital Signs & Weight: Vital Signs (12 hours) Temp Pulse Pulse Pulse Resp BP BP 09/09/20 08:37 86 09/09/20 08:35 89 80 146/71 H 128/60 09/09/20 08:00 98.8 F 86 20 09/09/20 03:25 72 BP BP Pulse Ox 09/09/20 08:37 09/09/20 08:35 09/09/20 08:00 146/71 H 94 L 09/09/20 03:25 149/65 H Weight Admit Weight 312 lb 9.6 oz Weight 312 lb 9.6 oz I&O: 09/08/20 09/09/20 09/10/20 06:59 06:59 06:59 Intake Total 2560 360 Output Total 500 Balance -500 2560 360 Result Diagrams: 09/09/20 03:31 09/09/20 03:31 Additional Labs: Accuchecks 09/09/20 09/09/20 09/08/20 10:52 05:46 20:25 POC Glucose 157 H 149 H 213 H 09/08/20 17:11 POC Glucose 115 H Hospitalist ROS - Medication Medications: Active Medications Generic Name Dose Route Start Last Admin Trade Name Freq PRN Reason Stop Dose Admin Amlodipine Besylate 5 mg 09/08/20 09:00 09/09/20 08:37 Amlodipine 5 Mg Tab PO 5 mg DAILY TATUM Administration Famotidine 20 mg 09/07/20 21:00 09/08/20 22:57 Famotidine 20 Mg Tab PO 20 mg 2100 TATUM Administration Gabapentin 300 mg 09/08/20 09:00 09/09/20 08:37 Gabapentin 300 Mg Cap PO 300 mg BID TATUM Administration Hydralazine HCl 10 mg 09/07/20 20:30 09/08/20 04:34 Hydralazine 20 Mg/Ml Vial SLOW IVP 10 mg Q6H PRN Administration SBP GREATER THAN 160 Insulin Human Lispro 0 units 09/07/20 20:32 09/09/20 12:50 Humalog 300 Units/3 Ml Vial SC 2 unit .MODERATE SLIDING SC PRN Administration Moderate Correctional Scale Insulin Human Lispro 0 units 09/08/20 21:11 09/08/20 22:57 Humalog 300 Units/3 Ml Vial SC 2 units .BEDTIME SLIDING SC PRN Administration Bedtime Correctional Scale Pantoprazole Sodium 40 mg 09/08/20 09:00 09/09/20 08:37 Pantoprazole 40 Mg Tab PO 40 mg DAILY TATUM Administration Polyethylene Glycol 17 gm 09/08/20 09:00 09/09/20 08:37 Polyethylene Glycol 3350 17 Gm Packet PO 17 gm DAILY TATUM Administration Simvastatin 5 mg 09/08/20 21:00 09/08/20 22:57 Simvastatin 5 Mg Tab PO 5 mg HS TATUM Administration Sodium Chloride 10 ml 09/08/20 21:00 09/09/20 08:38 Flush - Normal Saline 10 Ml Syringe IVF 10 ml Q12HR TATUM Administration Hospitalist Exam Vitals: Vital Signs (12 hours) Temp Pulse Pulse Pulse Resp BP BP 09/09/20 08:37 86 09/09/20 08:35 89 80 146/71 H 128/60 09/09/20 08:00 98.8 F 86 20 09/09/20 03:25 72 BP BP Pulse Ox 09/09/20 08:37 09/09/20 08:35 09/09/20 08:00 146/71 H 94 L 09/09/20 03:25 149/65 H Weight Admit Weight 312 lb 9.6 oz Weight 312 lb 9.6 oz General Appearance: awake alert Eye: PERRL, anicteric sclera ENT: no oropharyngeal lesions, moist mucosa Neck: supple, no JVD Heart: RRR, no murmur Respiratory: no wheezes, no ronchi, rales Gastrointestinal: soft, non-tender, non-distended, normal bowel sounds Extremities: no cyanosis, 1+ LE edema Neurological: cranial nerve grossly intact, no focal deficits Hosp A/P (1) Metastatic disease Code(s): C79.9 - SECONDARY MALIGNANT NEOPLASM OF UNSPECIFIED SITE Status: Suspected Qualifiers: Area of secondary neoplastic involvement: unspecified site Qualified Code(s): C79.9 - Secondary malignant neoplasm of unspecified site (2) Acute kidney failure Status: Acute (3) Anemia of chronic disease Code(s): D63.8 - ANEMIA IN OTHER CHRONIC DISEASES CLASSIFIED ELSEWHERE Status: Chronic (4) CAD (coronary artery disease) Code(s): I25.10 - ATHSCL HEART DISEASE OF [place] CORONARY ARTERY W/O ANG PCTRS Status: Chronic Qualifiers: Coronary Disease-Associated Artery/Lesion type: [place] artery [place] vs. transplanted heart: [place] heart Associated angina: without angina Qualified Code(s): I25.10 - Atherosclerotic heart disease of [place] coronary artery without angina pectoris (5) Diabetes type 2, controlled Code(s): E11.9 - TYPE 2 DIABETES MELLITUS WITHOUT COMPLICATIONS Status: Chronic Qualifiers: Diabetes mellitus superintendent terminal insulin use: without fpc use Diabetes mellitus complication status: with kidney complications Diabetes mellitus complication detail: with chronic kidney disease Chronic kidney disease stage: stage 3 (moderate) Qualified Code(s): E11.22 - Type 2 diabetes mellitus with diabetic chronic kidney disease; N18.30 - Chronic kidney disease, stage 3 unspecified (6) Hypertension Code(s): I10 - ESSENTIAL (PRIMARY) HYPERTENSION Status: Chronic Qualifiers: Hypertension type: essential hypertension Qualified Code(s): I10 - Essential (primary) hypertension (7) Morbid obesity with BMI of 40.0-44.9, adult Code(s): E66.01 - MORBID (SEVERE) OBESITY DUE TO EXCESS CALORIES; Z68.41 - BODY MASS INDEX [BMI]40.0-44.9, ADULT Status: Chronic (8) Paroxysmal atrial fibrillation Code(s): I48.0 - PAROXYSMAL ATRIAL FIBRILLATION Status: Chronic (9) Hyperkalemia Code(s): E87.5 - HYPERKALEMIA Status: Resolved (10) Physical deconditioning Code(s): R53.81 - OTHER MALAISE Status: Acute (11) Metabolic acidosis Code(s): E87.2 - ACIDOSIS Status: Resolved (12) left mild hydronephrosis Status: Acute - Plan is on norvasc, nebs aspirin, neurontin, zocor. had one session of HD with resolution of hyperkalemia and acidosis likely IR biopsy of either lymph node or skeletal mets on friday deconditioning, unclear if he can ambulate, PT to mobilize as tolerated. will be on coverage for now, dc glipizide in view of aysha d/w , plan is for IR to biospy on friday, if IR cannot access tissue then will do cysto/ureteroscopy if pt is stable on friday. gave full update to patients and daughter over phone on 09/08, I spoke to daughter and gave full updates 09/09/20. overall prognosis is guarded
[2020-09-09] MEDS: Famotidine 20 MG TAB PO SCH (21:16)
[2020-09-09] MEDS: Simvastatin 5 MG TAB PO SCH (21:16)
[2020-09-10 05:23] LABS: #Eosinphils 0.1 thou/uL (0.0-0.7); #Lymphocytes 1.1 thou/uL (1.20-3.40); #Monocytes 0.8 thou/uL (0.11-0.59); #Neutrophils 7.7 thou/uL (1.40-6.50); %Basophils 0.1 % (0.0-1.0); %Eosinophils 0.8 % (0.0-10.0); %Lymphocytes 11.7 % (21.0-51.0); %Monocytes 8.1 % (0.0-10.0); %Neutrophils 79.4 % (42.0-75.0); Hemoglobin 10.3 g/dL (14.0-18.0); Mean Corpuscular Hemoglobin 25.7 pg (27.0-31.0); Mean Corpuscular Volume 83.1 fL (78.0-98.0); Mean Platelet Volume 8.2 fL (7.4-10.4); Platelet Count 202 thou/uL (130-400); Red Blood Cell (RBC) Count 4.01 mill/uL (4.70-6.10); White Blood Cell (WBC) Count 9.7 thou/uL (4.8-10.8)
[2020-09-10 05:45] LABS: Anion Gap 14 mmol/L (10-20); BUN (Urea Nitrogen) 47 mg/dL (8.4-25.7); Calc. Creatinine Clearance 32 mL/min (70-130); Calcium 9.2 mg/dL (7.8-10.44); Carbon Dioxide 25 mmol/L (23-31); Chloride 101 mmol/L (98-107); Glucose 171 mg/dL (83-110); Magnesium 1.8 mg/dL (1.6-2.6); Potassium 5.1 mmol/L (3.5-5.1); Sodium 135 mmol/L (136-145)
[2020-09-10] MEDS: HumaLOG 300 UNITS/3 ML VIAL SC PRN ×2 (06:27→11:23)
[2020-09-10] MEDS: Gabapentin 300 MG CAP PO SCH ×2 (09:35→19:58)
[2020-09-10] MEDS: Amlodipine 5 MG TAB PO SCH (09:36)
[2020-09-10] MEDS: Polyethylene Glycol 3350 17 GM Packet PO SCH (09:36)
--- NOTE | 2020-09-10 11:17 | PRG ---
DATE OF SERVICE: 09/10/2020 SUBJECTIVE: A 70-year-old gentleman, being seen for end-stage renal disease. The patient denied any nausea, vomiting, or chest pain. OBJECTIVE: GENERAL: The patient is awake and alert. VITAL SIGNS: Afebrile, pulse 72, breathing 16, blood pressure 143/71. HEENT: Head normocephalic and atraumatic. Eyes intact, no ulcers. Nose intact, no ulcers. Ears intact, no ulcers. Neck: Supple. No JVD. Chest: Symmetrical and clear. Cardiovascular: Shows S1 and S2, no rub, no murmur. Gastrointestinal: Abdomen is soft, bowel sounds positive. Extremities: Show no edema or ulcers. Skin: Shows no rash or petechiae. Musculoskeletal: Shows no joint swelling or stiffness. Genitourinary: Shows no [place] or CVA tenderness. Neurologic: Motor intact. Cranial nerves intact. LABORATORY DATA: Labs show hemoglobin 10.3. Potassium is 5.1. ASSESSMENT AND PLAN: 1. Chronic kidney disease stage 5 with progressive renal failure. We will plan dialysis. 2. Hydronephrosis, followed by Urology. 3. Anemia, stable. 4. Medication based on GFR appropriate. 5. Hyperkalemia, watch potassium closely. We will plan dialysis based on schedule. Job ID: [id number]
--- NOTE | 2020-09-10 11:52 | PDOC.HOSPP ---
- Subjective Encounter Date: 09/10/20 Encounter Time: 11:00 Subjective: feels better, no sob or palp is eating well, has not amb yet - Objective Vital Signs & Weight: Vital Signs (12 hours) Temp Pulse Resp BP Pulse Ox 09/10/20 09:36 95 09/10/20 09:34 143/67 H 09/10/20 08:00 98.1 F 83 18 143/71 H 93 L Weight Admit Weight 312 lb 9.6 oz Weight 312 lb 9.6 oz I&O: 09/09/20 09/10/20 09/11/20 06:59 06:59 06:59 Intake Total 2560 900 Balance 2560 900 Result Diagrams: 09/10/20 05:13 09/10/20 05:13 Additional Labs: Accuchecks 09/10/20 09/10/20 09/09/20 11:03 09:34 20:52 POC Glucose 225 H 224 H 185 H 09/09/20 16:50 POC Glucose 134 H Hospitalist ROS - Medication Medications: Active Medications Generic Name Dose Route Start Last Admin Trade Name Freq PRN Reason Stop Dose Admin Amlodipine Besylate 5 mg 09/08/20 09:00 09/10/20 09:36 Amlodipine 5 Mg Tab PO 5 mg DAILY TATUM Administration Famotidine 20 mg 09/07/20 21:00 09/09/20 21:16 Famotidine 20 Mg Tab PO 20 mg 2100 TATUM Administration Gabapentin 300 mg 09/08/20 09:00 09/10/20 09:35 Gabapentin 300 Mg Cap PO 300 mg BID TATUM Administration Hydralazine HCl 10 mg 09/07/20 20:30 09/08/20 04:34 Hydralazine 20 Mg/Ml Vial SLOW IVP 10 mg Q6H PRN Administration SBP GREATER THAN 160 Insulin Human Lispro 0 units 09/07/20 20:32 09/10/20 11:23 Humalog 300 Units/3 Ml Vial SC 4 unit .MODERATE SLIDING SC PRN Administration Moderate Correctional Scale Insulin Human Lispro 0 units 09/08/20 21:11 09/08/20 22:57 Humalog 300 Units/3 Ml Vial SC 2 units .BEDTIME SLIDING SC PRN Administration Bedtime Correctional Scale Pantoprazole Sodium 40 mg 09/08/20 09:00 09/10/20 09:35 Pantoprazole 40 Mg Tab PO 40 mg DAILY TATUM Administration Polyethylene Glycol 17 gm 09/08/20 09:00 09/10/20 09:36 Polyethylene Glycol 3350 17 Gm Packet PO 17 gm DAILY TATUM Administration Simvastatin 5 mg 09/08/20 21:00 09/09/20 21:16 Simvastatin 5 Mg Tab PO 5 mg HS TATUM Administration Sodium Chloride 10 ml 09/08/20 21:00 09/10/20 09:36 Flush - Normal Saline 10 Ml Syringe IVF 10 ml Q12HR TATUM Administration Hospitalist Exam Vitals: Vital Signs (12 hours) Temp Pulse Resp BP Pulse Ox 09/10/20 09:36 95 09/10/20 09:34 143/67 H 09/10/20 08:00 98.1 F 83 18 143/71 H 93 L Weight Admit Weight 312 lb 9.6 oz Weight 312 lb 9.6 oz General Appearance: awake alert Eye: PERRL, anicteric sclera ENT: no oropharyngeal lesions, moist mucosa Neck: supple, no JVD Heart: RRR, no murmur Respiratory: no wheezes, no rales Gastrointestinal: soft, non-tender, non-distended, normal bowel sounds Extremities: no cyanosis, 1+ LE edema Neurological: cranial nerve grossly intact, no focal deficits Hosp A/P (1) Metastatic disease Code(s): C79.9 - SECONDARY MALIGNANT NEOPLASM OF UNSPECIFIED SITE Status: Suspected Qualifiers: Area of secondary neoplastic involvement: unspecified site Qualified Code(s ): C79.9 - Secondary malignant neoplasm of unspecified site (2) Acute kidney failure Status: Acute (3) Anemia of chronic disease Code(s): D63.8 - ANEMIA IN OTHER CHRONIC DISEASES CLASSIFIED ELSEWHERE Status: Chronic (4) CAD (coronary artery disease) Code(s): I25.10 - ATHSCL HEART DISEASE OF [place] CORONARY ARTERY W/O ANG PCTRS Status: Chronic Qualifiers: Coronary Disease-Associated Artery/Lesion type: [place] artery [place] vs. transplanted heart: [place] heart Associated angina: without angina Qualified Code(s): I25.10 - Atherosclerotic heart disease of [place] coronary artery without angina pectoris (5) Diabetes type 2, controlled Code(s): E11.9 - TYPE 2 DIABETES MELLITUS WITHOUT COMPLICATIONS Status: Chronic Qualifiers: Diabetes mellitus jail insulin use: without superintendent container terminal use Diabetes mellitus complication status: with kidney complications Diabetes mellitus complication detail: with chronic kidney disease Chronic kidney disease stage: stage 3 (moderate) Qualified Code(s): E11.22 - Type 2 diabetes mellitus with diabetic chronic kidney disease; N18.30 - Chronic kidney disease, stage 3 unspecified (6) Hypertension Code(s): I10 - ESSENTIAL (PRIMARY) HYPERTENSION Status: Chronic Qualifiers: Hypertension type: essential hypertension Qualified Code(s): I10 - Essential (primary) hypertension (7) Morbid obesity with BMI of 40.0-44.9, adult Code(s): E66.01 - MORBID (SEVERE) OBESITY DUE TO EXCESS CALORIES; Z68.41 - BODY MASS INDEX [BMI]40.0-44.9, ADULT Status: Chronic (8) Paroxysmal atrial fibrillation Code(s): I48.0 - PAROXYSMAL ATRIAL FIBRILLATION Status: Chronic (9) Hyperkalemia Code(s): E87.5 - HYPERKALEMIA Status: Resolved (10) Physical deconditioning Code(s): R53.81 - OTHER [place]ISE Status: Acute (11) Metabolic acidosis Code(s): E87.2 - ACIDOSIS Status: Resolved (12) left mild hydronephrosis Status: Acute - Plan is on norvasc, nebs aspirin, neurontin, zocor, small dose of lantus from [facility]. had one session of HD with resolution of hyperkalemia and acidosis on 09/08/20 likely IR biopsy of either lymph node or skeletal mets tomorrow. deconditioning, unclear if he can ambulate, PT to mobilize as tolerated. d/w on 09/08/2020, plan is for IR to biospy on friday, if IR cannot access tissue then will do cysto/ureteroscopy if pt is stable on friday. gave full update to patients and daughter over phone on 09/08, I spoke to daughter and gave full updates 09/09/20. overall prognosis is guarded
[2020-09-10] MEDS: Famotidine 20 MG TAB PO SCH (19:57)
[2020-09-10] MEDS: Simvastatin 5 MG TAB PO SCH (19:58)
[2020-09-11] MEDS ORDERED: HYDROcodone/Acetaminophen 5/325 mg Tablet ONE ×2 (04:15→04:19)
[2020-09-11] MEDS ORDERED: Polyethylene Glycol 3350 17 GM Packet ONE (08:37)
[2020-09-11] MEDS ORDERED: Amlodipine 5 MG TAB ONE (08:37)
[2020-09-11] MEDS ORDERED: Gabapentin 300 MG CAP ONE (08:37)
[2020-09-11] MEDS ORDERED: Famotidine 20 MG TAB ONE (08:37)
[2020-09-11] MEDS: Amlodipine 5 MG TAB PO SCH (09:00)
[2020-09-11] MEDS: Insulin Glargine 10 UNITS in Pre-Filled Syringe 1 EACH SC SCH (09:00)
[2020-09-11] MEDS: Polyethylene Glycol 3350 17 GM Packet PO SCH (09:00)
[2020-09-11] MEDS: Gabapentin 300 MG CAP PO SCH ×2 (09:00→19:46)
--- NOTE | 2020-09-11 15:18 | PDOC.HOSPP ---
- Subjective Encounter Date: 09/11/20 Subjective: No acute events overnight. Patient was n.p.o. for possible interventional radiology biopsy today. Additionally, he is going for repeat dialysis today per nephrology recommendation. Otherwise, patient has no acute complaints at this time. - Objective Vital Signs & Weight: Vital Signs (12 hours) Temp Pulse Resp BP Pulse Ox 09/11/20 08:00 97.5 F L 78 20 119/69 99 Weight Admit Weight 312 lb 9.6 oz Weight 312 lb 9.6 oz I&O: 09/10/20 09/11/20 09/12/20 06:59 06:59 06:59 Intake Total 900 960 Output Total 0 Balance 900 960 Result Diagrams: 09/10/20 05:13 09/10/20 05:13 Additional Labs: Accuchecks 09/11/20 09/10/20 06:22 19:33 POC Glucose 157 H 175 H Hospitalist ROS - Review of Systems All other systems reviewed; all pertinent +/- noted in HPI/Subj - Medication Medications: Active Medications Generic Name Dose Route Start Last Admin Trade Name Freq PRN Reason Stop Dose Admin Hydrocodone Bitart/Acetaminophen 1 tab 09/07/20 20:30 09/10/20 21:41 Hydrocodone/Acetaminophen 5/325 Mg Tablet PO 1 tab Q4H PRN Administration Moderate Pain (4-6) Amlodipine Besylate 5 mg 09/08/20 09:00 09/10/20 09:36 Amlodipine 5 Mg Tab PO 5 mg DAILY TATUM Administration Famotidine 20 mg 09/07/20 21:00 09/10/20 19:57 Famotidine 20 Mg Tab PO 20 mg 2100 TATUM Administration Gabapentin 300 mg 09/08/20 09:00 09/10/20 19:58 Gabapentin 300 Mg Cap PO 300 mg BID TATUM Administration Hydralazine HCl 10 mg 09/07/20 20:30 09/08/20 04:34 Hydralazine 20 Mg/Ml Vial SLOW IVP 10 mg Q6H PRN Administration SBP GREATER THAN 160 Insulin Human Lispro 0 units 09/07/20 20:32 09/10/20 11:23 Humalog 300 Units/3 Ml Vial SC 4 unit .MODERATE SLIDING SC PRN Administration Moderate Correctional Scale Insulin Human Lispro 0 units 09/08/20 21:11 09/08/20 22:57 Humalog 300 Units/3 Ml Vial SC 2 units .BEDTIME SLIDING SC PRN Administration Bedtime Correctional Scale Pantoprazole Sodium 40 mg 09/08/20 09:00 09/10/20 09:35 Pantoprazole 40 Mg Tab PO 40 mg DAILY TATUM Administration Polyethylene Glycol 17 gm 09/08/20 09:00 09/10/20 09:36 Polyethylene Glycol 3350 17 Gm Packet PO 17 gm DAILY TATUM Administration Simvastatin 5 mg 09/08/20 21:00 09/10/20 19:58 Simvastatin 5 Mg Tab PO 5 mg HS TATUM Administration Sodium Chloride 10 ml 09/08/20 21:00 09/10/20 19:58 Flush - Normal Saline 10 Ml Syringe IVF 10 ml Q12HR TATUM Administration Hospitalist Exam Vitals: Vital Signs (12 hours) Temp Pulse Resp BP Pulse Ox 09/11/20 08:00 97.5 F L 78 20 119/69 99 Weight Admit Weight 312 lb 9.6 oz Weight 312 lb 9.6 oz General Appearance: NAD, awake alert Eye: PERRL, anicteric sclera ENT: normocephalic atraumatic Neck: no JVD Heart: RRR, no murmur Respiratory: CTAB, no wheezes, no rales Gastrointestinal: soft, non-tender, non-distended Extremities: no edema Skin: no rashes Neurological: no new deficit Musculoskeletal: generalized weakness Psychiatric: somnolent Hosp A/P (1) Physical deconditioning Code(s): R53.81 - OTHER [place]ISE Status: Acute (2) left mild hydronephrosis Status: Acute (3) Metastatic disease Code(s): C79.9 - SECONDARY MALIGNANT NEOPLASM OF UNSPECIFIED SITE Status: Suspected Qualifiers: Area of secondary neoplastic involvement: unspecified site Qualified Code(s): C79.9 - Secondary malignant neoplasm of unspecified site (4) Metabolic acidosis Code(s): E87.2 - ACIDOSIS Status: Resolved (5) Acute kidney failure Status: Acute (6) Acute on chronic diastolic (congestive) heart failure Code(s): I50.33 - ACUTE ON CHRONIC DIASTOLIC (CONGESTIVE) HEART FAILURE Status: Acute (7) Anemia of chronic disease Code(s): D63.8 - ANEMIA IN OTHER CHRONIC DISEASES CLASSIFIED ELSEWHERE Status: Chronic (8) CAD (coronary artery disease) Code(s): I25.10 - ATHSCL HEART DISEASE OF [place] CORONARY ARTERY W/O ANG PCTRS Status: Chronic Qualifiers: Coronary Disease-Associated Artery/Lesion type: [place] artery [place] vs. transplanted heart: [place] heart Associated angina: without angina Qualified Code(s): I25.10 - Atherosclerotic heart disease of [place] coronary artery without angina pectoris (9) Hypertension Code(s): I10 - ESSENTIAL (PRIMARY) HYPERTENSION Status: Chronic Qualifiers: Hypertension type: essential hypertension Qualified Code(s): I10 - Essential (primary) hypertension (10) Morbid obesity with BMI of 40.0-44.9, adult Code(s): E66.01 - MORBID (SEVERE) OBESITY DUE TO EXCESS CALORIES; Z68.41 - BODY MASS INDEX [BMI]40.0-44.9, ADULT Status: Chronic (11) Paroxysmal atrial fibrillation Code(s): I48.0 - PAROXYSMAL ATRIAL FIBRILLATION Status: Chronic - Plan Continue norvasc, nebs aspirin, neurontin, zocor, small dose of lantus from tonight. had one session of HD with resolution of hyperkalemia and acidosis on 09/08/20; additional section of hemodialysis scheduled for today 09/11/2020. Patient scheduled for IR biopsy of either lymph node or skeletal mets 09/11/2020, however, discussed case with Dr. Malave with radiology and he does not feel that there is a good opportunity for biopsy. deconditioning, unclear if he can ambulate, PT to mobilize as tolerated. We will discuss with and will consider cysto/ureteroscopy if pt is stable on friday as patient not candidate for biopsy per interventional radiology at this time.
[2020-09-11] MEDS ORDERED: Heparin 10,000 UNITS/ 10 ML VIAL ONE (16:53)
--- NOTE | 2020-09-11 18:03 | PRG ---
DATE OF SERVICE: 09/11/2020 SUBJECTIVE: Patient was seen and examined at bedside and overnight events noted. Patient denies any shortness of breath or chest pain or palpitation. No history of nausea or vomiting or diarrhea or fever or chills or cramps. OBJECTIVE: GENERAL: This is an obese male in no acute distress. VITAL SIGNS: Temperature 97.5. Pulse 70. Respiratory rate . Blood pressure of 119/69. HEENT: Atraumatic, normocephalic. Oral mucosa is moist. NECK: Supple. CARDIOVASCULAR: S1, S2 heard. Rate and rhythm regular. RESPIRATORY: Clear to auscultation. GASTROINTESTINAL: Abdomen is soft. MUSCULOSKELETAL: No tenderness. No edema. DERMATOLOGIC: No skin rash. NEUROLOGIC: Alert and awake and oriented x3. No focal neurologic deficits. Moving all the extremities. PSYCHIATRIC: Mood and affect normal. LABORATORY DATA: Not done today. ASSESSMENT AND PLAN: 1. End-stage renal disease. Continue dialysis. 2. Hydronephrosis. Follow Urology. 3. Anemia. 4. Hyperkalemia. 5. Edema, controlled. Plan to continue on dialysis. Need tunneled dialysis catheter. Follow with Surgery. Job ID: [id number]
[2020-09-11] MEDS: Famotidine 20 MG TAB PO SCH (19:45)
[2020-09-11] MEDS: Heparin 5,000 UNITS/ML VIAL SC SCH (19:45)
[2020-09-11] MEDS: Simvastatin 5 MG TAB PO SCH (19:46)
[2020-09-12 06:32] LABS: Anion Gap 16 mmol/L (10-20); BUN (Urea Nitrogen) 48 mg/dL (8.4-25.7); Calc. Creatinine Clearance 34 mL/min (70-130); Calcium 9.8 mg/dL (7.8-10.44); Carbon Dioxide 26 mmol/L (23-31); Chloride 97 mmol/L (98-107); Glucose 180 mg/dL (83-110); Potassium 5.1 mmol/L (3.5-5.1); Sodium 134 mmol/L (136-145)
--- NOTE | 2020-09-12 08:22 | PDOC.HOSPP ---
- Subjective Encounter Date: 09/12/20 Subjective: No acute events overnight. Patient lying comfortably in bed. He received dialysis yesterday and was n.p.o. after midnight due to possible cystoscopy today. - Objective Vital Signs & Weight: Vital Signs (12 hours) Temp Pulse Resp BP Pulse Ox 09/12/20 07:33 97.8 F 78 16 166/60 H 96 Weight Admit Weight 312 lb 9.6 oz Weight 312 lb 9.6 oz I&O: 09/11/20 09/12/20 09/13/20 06:59 06:59 06:59 Intake Total 960 300 Output Total 0 Balance 960 300 Result Diagrams: 09/10/20 05:13 09/12/20 05:50 Additional Labs: Accuchecks 09/11/20 09/11/20 09/11/20 22:23 14:53 06:22 POC Glucose 186 H 130 H 157 H Hospitalist ROS - Review of Systems All other systems reviewed; all pertinent +/- noted in HPI/Subj - Medication Medications: Active Medications Generic Name Dose Route Start Last Admin Trade Name Freq PRN Reason Stop Dose Admin Hydrocodone Bitart/Acetaminophen 1 tab 09/07/20 20:30 09/10/20 21:41 Hydrocodone/Acetaminophen 5/325 Mg Tablet PO 1 tab Q4H PRN Administration Moderate Pain (4-6) Amlodipine Besylate 5 mg 09/08/20 09:00 09/11/20 09:00 Amlodipine 5 Mg Tab PO Not Given DAILY TATUM Famotidine 20 mg 09/07/20 21:00 09/11/20 19:45 Famotidine 20 Mg Tab PO 20 mg 2100 TATUM Administration Gabapentin 300 mg 09/08/20 09:00 09/11/20 19:46 Gabapentin 300 Mg Cap PO 300 mg BID TATUM Administration Heparin Sodium (Porcine) 5,000 units 09/11/20 21:00 09/11/20 19:45 Heparin 5,000 Units/Ml Vial SC Not Given BID TATUM Hydralazine HCl 10 mg 09/07/20 20:30 09/08/20 04:34 Hydralazine 20 Mg/Ml Vial SLOW IVP 10 mg Q6H PRN Administration SBP GREATER THAN 160 Insulin Glargine 10 units/ 0.1 mls @ 0 mls/hr 09/11/20 09:00 09/11/20 09:00 Miscellaneous Medication SC Not Given QAM TATUM Insulin Human Lispro 0 units 09/07/20 20:32 09/10/20 11:23 Humalog 300 Units/3 Ml Vial SC 4 unit .MODERATE SLIDING SC PRN Administration Moderate Correctional Scale Insulin Human Lispro 0 units 09/08/20 21:11 09/08/20 22:57 Humalog 300 Units/3 Ml Vial SC 2 units .BEDTIME SLIDING SC PRN Administration Bedtime Correctional Scale Pantoprazole Sodium 40 mg 09/08/20 09:00 09/11/20 09:00 Pantoprazole 40 Mg Tab PO Not Given DAILY TATUM Polyethylene Glycol 17 gm 09/08/20 09:00 09/11/20 09:00 Polyethylene Glycol 3350 17 Gm Packet PO Not Given DAILY TATUM Simvastatin 5 mg 09/08/20 21:00 09/11/20 19:46 Simvastatin 5 Mg Tab PO Not Given HS TATUM Sodium Chloride 10 ml 09/08/20 21:00 09/11/20 19:46 Flush - Normal Saline 10 Ml Syringe IVF 10 ml Q12HR TATUM Administration Hospitalist Exam Vitals: Vital Signs (12 hours) Temp Pulse Resp BP Pulse Ox 09/12/20 07:33 97.8 F 78 16 166/60 H 96 Weight Admit Weight 312 lb 9.6 oz Weight 312 lb 9.6 oz General Appearance: awake alert Eye: PERRL ENT: normocephalic atraumatic Neck: no JVD Heart: RRR, murmur present, II/IV Respiratory: CTAB, no wheezes, no rales, no ronchi Gastrointestinal: soft, non-tender, non-distended Extremities: 1+ LE edema Skin: normal turgor, no rashes Neurological: no new deficit Hosp A/P (1) Physical deconditioning Code(s): R53.81 - OTHER MALAISE Status: Acute (2) left mild hydronephrosis Status: Acute (3) Metastatic disease Code(s): C79.9 - SECONDARY MALIGNANT NEOPLASM OF UNSPECIFIED SITE Status: Suspected Qualifiers: Area of secondary neoplastic involvement: unspecified site Qualified Code(s): C79.9 - Secondary malignant neoplasm of unspecified site (4) Metabolic acidosis Code(s): E87.2 - ACIDOSIS Status: Resolved (5) Acute kidney failure Status: Acute (6) Acute on chronic diastolic (congestive) heart failure Code(s): I50.33 - ACUTE ON CHRONIC DIASTOLIC (CONGESTIVE) HEART FAILURE Status: Acute (7) Anemia of chronic disease Code(s): D63.8 - ANEMIA IN OTHER CHRONIC DISEASES CLASSIFIED ELSEWHERE Status: Chronic (8) CAD (coronary artery disease) Code(s): I25.10 - ATHSCL HEART DISEASE OF [place] CORONARY ARTERY W/O ANG PCTRS Status: Chronic Qualifiers: Coronary Disease-Associated Artery/Lesion type: [place] artery [place] vs. transplanted heart: [place] heart Associated angina: without angina Qualified Code(s): I25.10 - Atherosclerotic heart disease of [place] coronary artery without angina pectoris (9) Hypertension Code(s): I10 - ESSENTIAL (PRIMARY) HYPERTENSION Status: Chronic Qualifiers: Hypertension type: essential hypertension Qualified Code(s): I10 - Essential (primary) hypertension (10) Morbid obesity with BMI of 40.0-44.9, adult Code(s): E66.01 - MORBID (SEVERE) OBESITY DUE TO EXCESS CALORIES; Z68.41 - BODY MASS INDEX [BMI]40.0-44.9, ADULT Status: Chronic (11) Paroxysmal atrial fibrillation Code(s): I48.0 - PAROXYSMAL ATRIAL FIBRILLATION Status: Chronic - Plan 70-year-old male with past medical history of colon cancer who presented with multiple bone lesions, swollen abdominal lymph nodes and potential for ureteral mass with mild hydronephrosis and acute renal failure. Continue norvasc, nebs aspirin, neurontin, zocor, small dose of lantus from tonight. had one session of HD with resolution of hyperkalemia and acidosis on 09/08/20; additional section of hemodialysis performed 09/11/2020. Patient scheduled for IR biopsy of either lymph node or skeletal mets 09/11/2020, however, discussed case with Dr. Malave with radiology and he does not feel that there is a good opportunity for biopsy. deconditioning, unclear if he can ambulate, PT to mobilize as tolerated. We will discuss with and will consider cysto/ureteroscopy if pt is stable on 09/12/2020 as patient not candidate for biopsy per interventional radiology at this time. DVT prophylaxis: SCD, chemical prophylaxis held secondary to possible procedure GI prophylaxis: Pepcid CODE STATUS: Full code Disposition: Pending clinical improvement, however, will need help with case management to organize and arrange outpatient dialysis.
[2020-09-12] MEDS ORDERED: Aspirin 81 mg Enteric Coated Tablet PO SCH (09:00)
[2020-09-12] MEDS: Polyethylene Glycol 3350 17 GM Packet PO SCH (09:00)
[2020-09-12] MEDS: Heparin 5,000 UNITS/ML VIAL SC SCH ×2 (09:00→20:33)
[2020-09-12] MEDS: Insulin Glargine 10 UNITS in Pre-Filled Syringe 1 EACH SC SCH (09:00)
[2020-09-12] MEDS: Gabapentin 300 MG CAP PO SCH ×2 (09:00→20:34)
[2020-09-12] MEDS: Amlodipine 5 MG TAB PO SCH (16:28)
[2020-09-12] MEDS: HumaLOG 300 UNITS/3 ML VIAL SC PRN ×2 (16:29→21:17)
[2020-09-12] MEDS: Tuberculin PPD 0.1 ML VIAL I-DERMAL SCH (16:46)
[2020-09-12] MEDS ORDERED: Heparin 10,000 UNITS/ 10 ML VIAL ONE (16:56)
--- NOTE | 2020-09-12 17:57 | CON ---
DATE OF CONSULTATION: HISTORY OF PRESENT ILLNESS: Rick Gonsalez is a 70-year-old male from [place], , admitted for abdominal pain, progressive renal failure. He had a Trialysis catheter placed by Dr. Gaytan. I have been asked by Dr. Dial to see him regarding placement of a hemodialysis catheter, cuffed tunneled. Long-term dialysis access is held off because of some concern about malignancy and prognosis. The patient in 2013 had an EGD, snare polypectomy of gastric polyp. Had a Trialysis catheter placed on 09/08/2020. In July 2004, had a right colon cancer, right colectomy. In July 2004, cecal tumor, by Dr. Bernal, colonoscopy. In October 1999, right rotator cuff, Dr. Curtis pathology from his right colon resection revealed a 3.8 cm tumor, T3 N1 M0, 2 of 13 nodes positive. SOCIAL HISTORY: Tobacco, none. Alcohol, none. MEDICATIONS: 1. Gabapentin. 2. Protonix. 3. Amlodipine. 4. Glipizide. 5. Pravastatin. 6. Fish oil. 7. Ferrous sulfate. 8. Aspirin. PAST MEDICAL HISTORY: Diabetes mellitus, hypertension. He reports history of congestive heart failure. He did have a colonoscopy. Recent echocardiogram results were not available. Chest x-ray unremarkable except for congestive changes prior to starting to dialysis. Brain CAT scan on 08/27/2020, questionable lesion. CAT scan, questionable lytic lesion in left ischium, left iliac wing and right ilium, right iliac wing, right anterior superior iliac crest. Pathologic fracture of left 9th rib, question metastatic iliac lymph nodes. Superior pole of left kidney mass, 1.6 cm, may be malignant. 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 Consultation with Dr. Mcrae, who noted the patient apparently has suspected metastatic disease, osseous metastasis, and a possible transition point in the ureter, possibly represent urothelial carcinoma versus stricturing. The patient lives with his in [place]. 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 PHYSICAL EXAMINATION: VITAL SIGNS: Temperature 97.8 degrees, pulse 78, blood pressure 114/71. LUNGS: Clear to auscultation. CARDIAC: Regular rate and rhythm without murmur or gallop. ABDOMEN: Soft, obese, well-healed midline scar consistent with right colectomy, T3 N1 M0. EXTREMITIES: Palpable pedal pulses. IV left wrist, right groin Trialysis catheter. ASSESSMENT AND PLAN: 1. End-stage renal disease. We will plan placement of cuffed tunneled dialysis catheter as well as a central line. This will preserve his veins. We will obtain ultrasound vein mapping in case decision was made for primary fistula in the future. 2. Evidence of metastatic disease, abnormalities as noted above. 3. Obesity, metabolic syndrome. 4. Hypertension. 5. Diabetes. Job ID: [id number]
--- NOTE | 2020-09-12 19:27 | PRG ---
DATE OF SERVICE: 09/12/2020 SUBJECTIVE: Patient was seen and examined at bedside and overnight events noted. Patient denies any shortness of breath or chest pain or palpitation. No history of nausea or vomiting or diarrhea or fever or chills or cramps. OBJECTIVE: General: This is a morbidly obese male, in no apparent distress. Vital Signs: Temperature 97.8. Heart Rate 70. Respiratory rate . Blood pressure 166/60. HEENT: Atraumatic, normocephalic. Oral mucosa is moist. Neck: Supple. Cardiovascular: S1, S2 heard. Rate and rhythm regular. Respiratory: Clear to auscultation. Gastrointestinal: Abdomen is soft. Musculoskeletal: No tenderness. No edema. Dermatologic: No skin rash. Neurologic: Alert and awake and oriented x3. No focal neurologic deficits. Moving all the extremities. Psychiatric: Mood and affect normal. LABORATORY DATA: Potassium 5.1, BUN is 48, creatinine is 3.9. ASSESSMENT AND PLAN: 1. End-stage renal disease. Continue on dialysis on Friday, Friday, and Friday. 2. Hydronephrosis. Follow with Urology. 3. Anemia of chronic disease. 4. Hyperkalemia. 5. Edema, controlled. 6. Consulted Dr. Pool for access placement. The patient need tunneled dialysis catheter. Consult Case Management for outpatient placement. We will check dialysis, hepatitis panel. Also, we will check PPD skin test. We will follow. Job ID: [id number]
[2020-09-12] MEDS: Famotidine 20 MG TAB PO SCH (20:33)
[2020-09-12] MEDS: Simvastatin 5 MG TAB PO SCH (20:36)
[2020-09-13] MEDS ORDERED: Fentanyl 100 MCG/2 ML VIAL ONE (06:30)
[2020-09-13] MEDS ORDERED: Propofol 1,000 MG/100 ML VIAL IV ONE (06:30)
[2020-09-13] MEDS ORDERED: Sodium Chloride 0.9% 0 ML ONE (06:37)
[2020-09-13] MEDS ORDERED: Bupivacaine PF 0.5% 30 ML VIAL ONE (06:37)
[2020-09-13] MEDS ORDERED: Heparin 10,000 UNITS/ 10 ML VIAL ONE (06:37)
[2020-09-13] MEDS ORDERED: XYLOCAINE 2%-EPI 1:100,000 20 ML VIAL ONE (06:37)
[2020-09-13] MEDS ORDERED: Sodium Chloride 0.9% 30 ML ONE (06:44)
[2020-09-13] MEDS ORDERED: Clindamycin/D5W 600 mg/50 ml Premix Bag ONE (07:29)
[2020-09-13 08:02] LABS: Anion Gap 19 mmol/L (10-20); BUN (Urea Nitrogen) 44 mg/dL (8.4-25.7); Calc. Creatinine Clearance 35 mL/min (70-130); Calcium 9.5 mg/dL (7.8-10.44); Carbon Dioxide 22 mmol/L (23-31); Chloride 97 mmol/L (98-107); Glucose 198 mg/dL (83-110); Potassium 4.5 mmol/L (3.5-5.1); Sodium 133 mmol/L (136-145)
[2020-09-13 08:23] LABS: HBSAB Concentration Less than 8.00 mIU/mL; Hep B Core Total Ab Non-Reactive (NonReactive); Hep B Core Total Index 0.13 S/CO (0-0.79); Hep B Surf AB Non-Reactive (NonReactive); Hep B Surf Ag Non-Reactive S/CO (NonReactive); Hep C IgG Ab Non-Reactive (NonReactive)
[2020-09-13] MEDS ORDERED: Promethazine HCl 25 MG/ML VIAL SLOW IVP PRN (08:57)
[2020-09-13] MEDS ORDERED: Ondansetron HCl/PF 4 MG/2 ML Vial IVP PRN (08:57)
[2020-09-13] MEDS ORDERED: Promethazine HCl 25 MG/ML VIAL IM PRN (08:57)
[2020-09-13] MEDS: Gabapentin 300 MG CAP PO SCH ×2 (09:00→20:36)
[2020-09-13] MEDS: Heparin 5,000 UNITS/ML VIAL SC SCH ×2 (09:00→20:36)
[2020-09-13] MEDS: Polyethylene Glycol 3350 17 GM Packet PO SCH (09:00)
--- NOTE | 2020-09-13 09:13 | OP ---
DATE OF PROCEDURE: 09/13/2020 PREOPERATIVE DIAGNOSES: End-stage renal disease; morbid obesity; metabolic syndrome; history of T3 N1 M0 right colon cancer remotely now with osteolytic lesions, pelvis, spine, ribs. POSTOPERATIVE DIAGNOSES: End-stage renal disease; morbid obesity; metabolic syndrome; history of T3 N1 M0 right colon cancer remotely now with osteolytic lesions, pelvis, spine, ribs. PROCEDURES PERFORMED: Right IJ cuffed tunneled dialysis catheter, left IJ central line, ultrasound fluoroscopy used. ANESTHESIA: 0.5% Marcaine 30 mL mixed with 1% Xylocaine with epinephrine 20 mL. Intravenous sedation. DESCRIPTION OF PROCEDURE: The patient was taken to the operating room, under intravenous sedation, neck and chest clipped of hair, prepared with ChloraPrep and draped in routine fashion. Local anesthetic mixture was infiltrated into the skin and subcutaneous tissue about the operative site. Ultrasound would not work and I cannulated the left IJ with ultrasound guidance. We obtained another ultrasound. I cannulated the right IJ with a trocar catheter. J-wire was threaded, trocar catheter removed. Skin site enlarged sharply. Stab incision made over the right chest. Seldinger technique used to place a triple-lumen catheter left IJ, secured with 3-0 nylon suture. Each port aspirated blood flushed with saline solution. Using the tunneling device, the pre-curved [employer] cuffed tunneled hemodialysis catheter tunneled between 2 incisions, placed in the fabric cuff beneath the skin exit site over the chest and catheter secured with 2 interrupted suture of 3-0 nylon. Sterile dressings applied. Small and medium size dilators placed over the J-wire into the IJ and removed. Dilator and Peel-Away sheath placed over the guidewire into the superior vena cava. Dilator and J-wire were removed. Catheter placed with the Peel-Away sheath. Peel-Away sheath removed. Platysma was approximated with 4-0 Monocryl, skin with 4-0 Monocryl, subdermal glue applied. Each port aspirated blood flushed with saline solution and heparinized with saline solution 1000 units of heparin per mL, indicating volume of the port. Final fluoroscopic images revealed good line placement. Job ID: [id number]
--- NOTE | 2020-09-13 10:40 | RAD ---
CHEST 1 VIEW: Date: 09/13/2020 HISTORY: Central line placement and hemodialysis catheter placement. COMPARISON: Radiograph 11/15/2019. FINDINGS: Heart size is enlarged. Right IJ dialysis catheter tip projects over the inferior SVC. Left central v enous catheter tip projects in the mid SVC. No pneumothorax. IMPRESSION: Uncomplicated line placement. POS: HOME
--- NOTE | 2020-09-13 10:46 | ULT ---
Dialysis access upper extremity vascular ultrasound: 09/13/2020 COMPARISON: None. HISTORY: End-stage renal disease, assess vascular structures for dialysis access. TECHNIQUE: Vascular structures of bilateral upper extremities assessed with Doppler interrogation inc luding color flow and spectral analysis as detailed below. FINDINGS: The internal jugular vein, subclavian vein, and axillary vein are patent bilaterally. VESSEL DIAMETER (mm) Right Brachial Artery 4.0 Right Radial Artery 2.0 Right Ulnar Artery 2.7 Left Brachial Artery 4.8 Left Radial Artery 2.2 Left Ulnar Artery 2.7 RIGHT CEPHALIC VEIN: Above Elbow Proximal 2.4 Above Elbow Mid 2.6 Above Elbow Distal 2.8 At Elbow 3.1 Below Elbow Proximal 2.2 Below Elbow Mid 2.4 Below Elbow Distal 1.9 RIGHT BASILIC VEIN: Above Elbow Proximal Nonvisualized Above Elbow Mid 1.1 Above Elbow Distal 1.1 At Elbow 1.3 Below Elbow Proximal 1.2 Below Elbow Mid 1.0 Below Elbow Distal 1.1 LEFT BASILIC VEIN: Above Elbow Proximal 3.1 Above Elbow Mid 2.9 Above Elbow Distal 3.4 At Elbow 3.1 Below Elbow Proximal 1.5 Below Elbow Mid 1.3 Below Elbow Distal 1.1 LEFT CEPHALIC VEIN: Above Elbow Proximal 2.1 Above Elbow Mid 2.2 Above Elbow Distal Noncompressible suggesting thrombosis At Elbow 1.4 Below Elbow Proximal 1.3 Below Elbow Mid 1.6 Below Elbow Distal 1.0 IMPRESSION: Dialysis mapping the vascular ultrasound as above IMPRESSION: Vascular mapping as detailed above. Transcribed Date/Time: 09/13/2020 11:15 AM
[2020-09-13] MEDS: Amlodipine 5 MG TAB PO SCH (13:33)
[2020-09-13] MEDS: Insulin Glargine 10 UNITS in Pre-Filled Syringe 1 EACH SC SCH (13:36)
--- NOTE | 2020-09-13 13:56 | PDOC.HOSPP ---
- Subjective Encounter Date: 09/13/20 Subjective: Patient seen by me this morning after he had a tunnel HD catheter placed. Seems very down during his ongoing medical care. He did however make a request to me to arrange for outpatient hemodialysis at the center where his brother goes to. I relayed this information to case management. - Objective Vital Signs & Weight: Vital Signs (12 hours) Temp Pulse Resp BP Pulse Ox 09/13/20 13:33 83 09/13/20 09:41 98.2 F 83 16 140/84 96 Weight Admit Weight 312 lb 9.6 oz Weight 312 lb 9.6 oz I&O: 09/12/20 09/13/20 09/14/20 06:59 06:59 06:59 Intake Total 300 800 Balance 300 800 Result Diagrams: 09/10/20 05:13 09/13/20 07:30 Additional Labs: Accuchecks 09/13/20 09/12/20 09/12/20 12:07 21:07 16:01 POC Glucose 195 H 240 H 247 H Hospitalist ROS - Medication Medications: Active Medications Generic Name Dose Route Start Last Admin Trade Name Freq PRN Reason Stop Dose Admin Hydrocodone Bitart/Acetaminophen 1 tab 09/07/20 20:30 09/10/20 21:41 Hydrocodone/Acetaminophen 5/325 Mg Tablet PO 1 tab Q4H PRN Administration Moderate Pain (4-6) Amlodipine Besylate 5 mg 09/08/20 09:00 09/13/20 13:33 Amlodipine 5 Mg Tab PO 5 mg DAILY TATUM Administration Famotidine 20 mg 09/07/20 21:00 09/12/20 20:33 Famotidine 20 Mg Tab PO 20 mg 2100 TATUM Administration Gabapentin 300 mg 09/08/20 09:00 09/13/20 09:00 Gabapentin 300 Mg Cap PO Not Given BID TATUM Heparin Sodium (Porcine) 5,000 units 09/11/20 21:00 09/13/20 09:00 Heparin 5,000 Units/Ml Vial SC Not Given BID TATUM Hydralazine HCl 10 mg 09/07/20 20:30 09/08/20 04:34 Hydralazine 20 Mg/Ml Vial SLOW IVP 10 mg Q6H PRN Administration SBP GREATER THAN 160 Insulin Glargine 10 units/ 0.1 mls @ 0 mls/hr 09/11/20 09:00 09/13/20 13:36 Miscellaneous Medication SC 0.1 mls QAM TATUM Administration Insulin Human Lispro 0 units 09/07/20 20:32 09/12/20 16:29 Humalog 300 Units/3 Ml Vial SC 4 unit .MODERATE SLIDING SC PRN Administration Moderate Correctional Scale Insulin Human Lispro 0 units 09/08/20 21:11 09/12/20 21:17 Humalog 300 Units/3 Ml Vial SC 2 units .BEDTIME SLIDING SC PRN Administration Bedtime Correctional Scale Pantoprazole Sodium 40 mg 09/08/20 09:00 09/13/20 09:00 Pantoprazole 40 Mg Tab PO Not Given DAILY TATUM Polyethylene Glycol 17 gm 09/08/20 09:00 09/13/20 09:00 Polyethylene Glycol 3350 17 Gm Packet PO Not Given DAILY TATUM Simvastatin 5 mg 09/08/20 21:00 09/12/20 20:36 Simvastatin 5 Mg Tab PO 5 mg HS TATUM Administration Sodium Chloride 10 ml 09/08/20 21:00 09/12/20 20:36 Flush - Normal Saline 10 Ml Syringe IVF 10 ml Q12HR TATUM Administration Tuberculin PPD 0.1 ml 09/12/20 15:30 09/12/20 16:46 Tuberculin Ppd 0.1 Ml Vial I-DERMAL 09/15/20 17:30 0.1 ml NOW TATUM Administration Hospitalist Exam Vitals: Vital Signs (12 hours) Temp Pulse Resp BP Pulse Ox 09/13/20 13:33 83 09/13/20 09:41 98.2 F 83 16 140/84 96 Weight Admit Weight 312 lb 9.6 oz Weight 312 lb 9.6 oz General - other findings: lethargic, down ENT: normocephalic atraumatic Heart: RRR, no murmur, no gallops, no rubs Heart - other findings: Right-sided tunneled hemodialysis catheter Respiratory: CTAB, no wheezes, no ronchi Gastrointestinal: soft, non-tender, non-distended Extremities: no clubbing, no edema Neurological: cranial nerve grossly intact Psychiatric - other findings: depressed Hosp A/P (1) ESRD (end stage renal disease) on dialysis Code(s): N18.6 - END STAGE RENAL DISEASE; Z99.2 - DEPENDENCE ON RENAL DIALYSIS Status: Acute (2) Physical deconditioning Code(s): R53.81 - OTHER MALAISE Status: Acute (3) left mild hydronephrosis Status: Acute (4) Metastatic disease Code(s): C79.9 - SECONDARY MALIGNANT NEOPLASM OF UNSPECIFIED SITE Status: Suspected Qualifiers: Area of secondary neoplastic involvement: unspecified site Qualified Code(s): C79.9 - Secondary malignant neoplasm of unspecified site (5) Hyperkalemia Code(s): E87.5 - HYPERKALEMIA Status: Resolved (6) Metabolic acidosis Code(s): E87.2 - ACIDOSIS Status: Resolved (7) Acute kidney failure Status: Acute (8) Acute on chronic diastolic (congestive) heart failure Code(s): I50.33 - ACUTE ON CHRONIC DIASTOLIC (CONGESTIVE) HEART FAILURE Status: Acute (9) Anemia of chronic disease Code(s): D63.8 - ANEMIA IN OTHER CHRONIC DISEASES CLASSIFIED ELSEWHERE Status: Chronic (10) CAD (coronary artery disease) Code(s): I25.10 - ATHSCL HEART DISEASE OF [place] CORONARY ARTERY W/O ANG PCTRS Status: Chronic Qualifiers: Coronary Disease-Associated Artery/Lesion type: [place] artery [place] vs. transplanted heart: [place] heart Associated angina: without angina Qualified Code(s): I25.10 - Atherosclerotic heart disease of [place] coronary artery without angina pectoris (11) Diabetes type 2, controlled Code(s): E11.9 - TYPE 2 DIABETES MELLITUS WITHOUT COMPLICATIONS Status: Chronic Qualifiers: Diabetes mellitus production editor insulin use: without production editor use Diabetes mellitus complication status: with kidney complications Diabetes mellitus complication detail: with chronic kidney disease Chronic kidney disease stage: stage 3 (moderate) Qualified Code(s): E11.22 - Type 2 diabetes mellitus with diabetic chronic kidney disease; N18.30 - Chronic kidney disease, stage 3 unspecified (12) Morbid obesity with BMI of 40.0-44.9, adult Code(s): E66.01 - MORBID (SEVERE) OBESITY DUE TO EXCESS CALORIES; Z68.41 - BODY MASS INDEX [BMI]40.0-44.9, ADULT Status: Chronic (13) Paroxysmal atrial fibrillation Code(s): I48.0 - PAROXYSMAL ATRIAL FIBRILLATION Status: Chronic - Plan Assessment Patient is a 70-year-old male with a known past medical history diastolic heart failure, paroxysmal atrial fibrillation previously on Xarelto, now discontinued after episodes of GI bleeding. He also has a history of right-sided colon cancer status post colectomy in 2004 followed by chemotherapy and radiation at [facility]. Had a negative colonoscopy a few months ago on routine surveillance. He presented from rehab where he went after hospitalization for acute renal failure on 09/02/2020. While at rehab, the examining physician noted he had poor urine output. During this admission, CT abdomen and pelvis done on August 27 captured renal mass along with several lytic lesions located in the ischium, both iliac wings and the right anterior superior iliac crest. 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 He was deemed high risk by interventional radiology for biopsy. At this time urology has agreed to proceed with cystoureteroscopic biopsy as reinvestigated for primary malignancy. Dr. Michael from the hospitalist team has spoken with Dr. Mcrae from Urology on 09/12/2020 regarding biopsy. Unfortunately cannot make it to the hospital due to ongoing weather conditions. He can do this as outpatient. He was in renal failure during his admission. He has been receiving hemodialysis on Friday via a transcatheter. Surgery placed a right tunneled hemodialysis catheter on 09/13. Acute renal failure -most likely obstructive uropathy secondary to malignancy Diffuse metastatic disease: Refer to the lesions above History of colon cancer status post partial colectomy followed by radiation and chemotherapy Physical deconditioning Type 2 diabetes mellitus -hemoglobin A1c of 8.5 Plan: Continue hemodialysis while in-house I have discussed with caser in regarding arrangement for outpatient hemodialysis Try to perform the biopsy as outpatient I will arrange for outpatient follow-up with oncology after the path results have been available. I have discussed the case with Dr. Hermann Epperson, oncology Continue insulin sliding scale Continue DVT and GI prophylaxis
[2020-09-13] MEDS ORDERED: Acetaminophen 500 MG TAB PO PRN (15:00)
[2020-09-13] MEDS ORDERED: traMADol HCl 50 MG TAB PO PRN (15:00)
--- NOTE | 2020-09-13 15:59 | PRG ---
DATE OF SERVICE: 09/13/2020 SUBJECTIVE: Patient was seen and examined at bedside and overnight events noted. Patient denies any shortness of breath or chest pain or palpitation. No history of nausea or vomiting or diarrhea or fever or chills or cramps. OBJECTIVE: GENERAL: This is a morbidly obese male, in no apparent distress. VITAL SIGNS: Temperature 98.2. Heart Rate 83. Respiratory rate 16. Blood Pressure 140/84. HEENT: Atraumatic, normocephalic. Oral mucosa is moist. NECK: Supple. CARDIOVASCULAR: S1, S2 heard. Rate and rhythm regular. RESPIRATORY: Clear to auscultation. GASTROINTESTINAL: Abdomen is soft. MUSCULOSKELETAL: No tenderness. No edema. DERMATOLOGIC: No skin rash. NEUROLOGIC: Alert and awake and oriented x3. No focal neurologic deficits. Moving all the extremities. PSYCHIATRIC: Mood and affect normal. LABORATORY DATA: Potassium 4.5, BUN is 44, and creatinine is 3.7. ASSESSMENT AND PLAN: 1. End-stage renal disease. Continue dialysis as tolerated. 2. Hydronephrosis, follow with Urology. 3. Anemia of chronic disease. 4. Hyperkalemia. 5. Edema. Appreciate Surgery for dialysis access placement. The patient needs surgery for dialysis access placement and leave the femoral catheter today. If the tunneled dialysis catheter is working tomorrow, we will remove femoral dialysis catheter. Continue dialysis. Follow with Case Management for outpatient placement. PPD skin test placed. Dialysis order set placed. We will follow. Job ID: [id number] [id number]
[2020-09-13] MEDS: HumaLOG 300 UNITS/3 ML VIAL SC PRN (16:58)
[2020-09-13] MEDS: Tuberculin PPD 0.1 ML VIAL I-DERMAL SCH (17:24)
[2020-09-13] MEDS: Famotidine 20 MG TAB PO SCH (20:36)
[2020-09-13] MEDS: Simvastatin 5 MG TAB PO SCH (20:36)
[2020-09-14] MEDS: HumaLOG 300 UNITS/3 ML VIAL SC PRN ×4 (05:57→21:12)
[2020-09-14 06:12] LABS: Anion Gap 16 mmol/L (10-20); BUN (Urea Nitrogen) 56 mg/dL (8.4-25.7); Calc. Creatinine Clearance 29 mL/min (70-130); Calcium 9.4 mg/dL (7.8-10.44); Carbon Dioxide 24 mmol/L (23-31); Chloride 96 mmol/L (98-107); Glucose 183 mg/dL (83-110); Potassium 4.4 mmol/L (3.5-5.1); Sodium 132 mmol/L (136-145)
[2020-09-14] MEDS: Amlodipine 5 MG TAB PO SCH (08:56)
[2020-09-14] MEDS: Heparin 5,000 UNITS/ML VIAL SC SCH ×2 (08:56→20:36)
[2020-09-14] MEDS: Gabapentin 300 MG CAP PO SCH ×2 (09:00→20:38)
[2020-09-14] MEDS ORDERED: READ PPD TEST SITE PO SCH ×2 (09:00→15:45)
[2020-09-14] MEDS: Polyethylene Glycol 3350 17 GM Packet PO SCH (09:02)
[2020-09-14] MEDS: Insulin Glargine 10 UNITS in Pre-Filled Syringe 1 EACH SC SCH (09:17)
--- NOTE | 2020-09-14 12:32 | PDOC.HOSPP ---
- Subjective Encounter Date: 09/14/20 Subjective: No acute events overnight. Patient is pending his first dialysis via the newly placed tunneled catheter. - Objective Vital Signs & Weight: Vital Signs (12 hours) Temp Pulse Resp BP BP Pulse Ox 09/14/20 08:45 98.2 F 76 18 167/70 H 95 09/14/20 04:24 98.4 F 86 18 144/69 H 94 L Weight Admit Weight 312 lb 9.6 oz Weight 312 lb 9.6 oz I&O: 09/13/20 09/14/20 09/15/20 06:59 06:59 06:59 Intake Total 800 300 Balance 800 300 Result Diagrams: 09/10/20 05:13 09/14/20 05:42 Additional Labs: Accuchecks 09/14/20 09/13/20 09/13/20 05:43 21:38 16:42 POC Glucose 166 H 254 H 243 H 09/13/20 12:07 POC Glucose 195 H Hospitalist ROS - Medication Medications: Active Medications Generic Name Dose Route Start Last Admin Trade Name Freq PRN Reason Stop Dose Admin Hydrocodone Bitart/Acetaminophen 1 tab 09/07/20 20:30 09/10/20 21:41 Hydrocodone/Acetaminophen 5/325 Mg Tablet PO 1 tab Q4H PRN Administration Moderate Pain (4-6) Amlodipine Besylate 5 mg 09/08/20 09:00 09/14/20 08:56 Amlodipine 5 Mg Tab PO 5 mg DAILY TATUM Administration Famotidine 20 mg 09/07/20 21:00 09/13/20 20:36 Famotidine 20 Mg Tab PO 20 mg 2100 TATUM Administration Gabapentin 300 mg 09/08/20 09:00 09/14/20 09:00 Gabapentin 300 Mg Cap PO 300 mg BID TATUM Administration Heparin Sodium (Porcine) 5,000 units 09/11/20 21:00 09/14/20 08:56 Heparin 5,000 Units/Ml Vial SC 5,000 units BID TATUM Administration Hydralazine HCl 10 mg 09/07/20 20:30 09/08/20 04:34 Hydralazine 20 Mg/Ml Vial SLOW IVP 10 mg Q6H PRN Administration SBP GREATER THAN 160 Insulin Glargine 10 units/ 0.1 mls @ 0 mls/hr 09/11/20 09:00 09/14/20 09:17 Miscellaneous Medication SC 0.1 mls QAM TATUM Administration Insulin Human Lispro 0 units 09/07/20 20:32 09/14/20 11:56 Humalog 300 Units/3 Ml Vial SC 2 unit .MODERATE SLIDING SC PRN Administration Moderate Correctional Scale Insulin Human Lispro 0 units 09/08/20 21:11 09/12/20 21:17 Humalog 300 Units/3 Ml Vial SC 2 units .BEDTIME SLIDING SC PRN Administration Bedtime Correctional Scale Pantoprazole Sodium 40 mg 09/08/20 09:00 09/14/20 09:01 Pantoprazole 40 Mg Tab PO 40 mg DAILY TATUM Administration Polyethylene Glycol 17 gm 09/08/20 09:00 09/14/20 09:02 Polyethylene Glycol 3350 17 Gm Packet PO Not Given DAILY TATUM Simvastatin 5 mg 09/08/20 21:00 09/13/20 20:36 Simvastatin 5 Mg Tab PO 5 mg HS TATUM Administration Sodium Chloride 10 ml 09/08/20 21:00 09/14/20 09:01 Flush - Normal Saline 10 Ml Syringe IVF 10 ml Q12HR TATUM Administration Tuberculin PPD 0.1 ml 09/12/20 15:30 09/13/20 17:24 Tuberculin Ppd 0.1 Ml Vial I-DERMAL 09/15/20 17:30 Not Given NOW [facility] Hospitalist Exam Vitals: Vital Signs (12 hours) Temp Pulse Resp BP BP Pulse Ox 09/14/20 08:45 98.2 F 76 18 167/70 H 95 09/14/20 04:24 98.4 F 86 18 144/69 H 94 L Weight Admit Weight 312 lb 9.6 oz Weight 312 lb 9.6 oz General Appearance: NAD, awake alert Eye: anicteric sclera ENT: normocephalic atraumatic Neck: supple Heart: RRR, no murmur, no gallops, no rubs Heart - other findings: Right-sided tunneled hemodialysis catheter, left IJ Respiratory: CTAB, no wheezes, no rales, no ronchi Gastrointestinal: soft, non-tender, non-distended Extremities: no edema Psychiatric: normal affect, normal behavior Hosp A/P (1) ESRD (end stage renal disease) on dialysis Code(s): N18.6 - END STAGE RENAL DISEASE; Z99.2 - DEPENDENCE ON RENAL DIALYSIS Status: Acute (2) Physical deconditioning Code(s): R53.81 - OTHER MALAISE Status: Acute (3) left mild hydronephrosis Status: Acute (4) Metastatic disease Code(s): C79.9 - SECONDARY MALIGNANT NEOPLASM OF UNSPECIFIED SITE Status: Suspected Qualifiers: Area of secondary neoplastic involvement: unspecified site Qualified Code(s): C79.9 - Secondary malignant neoplasm of unspecified site (5) Hyperkalemia Code(s): E87.5 - HYPERKALEMIA Status: Resolved (6) Metabolic acidosis Code(s): E87.2 - ACIDOSIS Status: Resolved (7) Acute kidney failure Status: Acute (8) Acute on chronic diastolic (congestive) heart failure Code(s): I50.33 - ACUTE ON CHRONIC DIASTOLIC (CONGESTIVE) HEART FAILURE Status: Acute (9) Anemia of chronic disease Code(s): D63.8 - ANEMIA IN OTHER CHRONIC DISEASES CLASSIFIED ELSEWHERE Status: Chronic (10) CAD (coronary artery disease) Code(s): I25.10 - ATHSCL HEART DISEASE OF [place] CORONARY ARTERY W/O ANG PCTRS Status: Chronic Qualifiers: Coronary Disease-Associated Artery/Lesion type: [place] artery [place] vs. transplanted heart: [place] heart Associated angina: without angina Qualified Code(s): I25.10 - Atherosclerotic heart disease of [place] coronary artery without angina pectoris (11) Diabetes type 2, controlled Code(s): E11.9 - TYPE 2 DIABETES MELLITUS WITHOUT COMPLICATIONS Status: Chronic Qualifiers: Diabetes mellitus jail insulin use: without jail use Diabetes me llitus complication status: with kidney complications Diabetes mellitus c omplication detail: with chronic kidney disease Chronic kidney disease stage: stage 3 (moderate) Qualified Code(s): E11.22 - Type 2 diabetes mellitus with diabetic chronic kidney disease; N18.30 - Chronic kidney disease, stage 3 unspe cified (12) Morbid obesity with BMI of 40.0-44.9, adult Code(s): E66.01 - MORBID (SEVERE) OBESITY DUE TO EXCESS CALORIES; Z68.41 - BODY MASS INDEX [BMI]40.0-44.9, ADULT Status: Chronic (13) Paroxysmal atrial fibrillation Code(s): I48.0 - PAROXYSMAL ATRIAL FIBRILLATION Status: Chronic - Plan Assessment Patient is a 70-year-old male with a known past medical history diastolic heart failure, paroxysmal atrial fibrillation previously on Xarelto, now discontinued after episodes of GI bleeding. He also has a history of right-sided colon cancer status post colectomy in 2004 followed by chemotherapy and radiation at [facility]. Had a negative colonoscopy a few months ago on routine surveillance. He presented from rehab where he went after hospitalization for acute renal failure on 09/02/2020. While at rehab, the examining physician noted he had poor urine output. During this admission, CT abdomen and pelvis done on August 27 captured renal mass along with several lytic lesions located in the ischium, both iliac wings and the right anterior superior iliac crest. 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 He was deemed high risk by interventional radiology for biopsy. At this time urology has agreed to proceed with cystoureteroscopic biopsy as reinvestigated for primary malignancy. Dr. Michael from the hospitalist team has spoken with Dr. Mcrae from Urology on 09/12/2020 regarding biopsy. Unfortunately cannot make it to the hospital due to ongoing weather conditions. He can do this as outpatient. He was in renal failure during his admission. He has been receiving hemodialysis on Friday via a trialysis catheter. Surgery placed a right tunneled hemodialysis catheter on 09/13. Acute renal failure -most likely obstructive uropathy secondary to malignancy Diffuse metastatic disease: Refer to the lesions above History of colon cancer status post partial colectomy followed by radiation and chemotherapy Physical deconditioning Type 2 diabetes mellitus -hemoglobin A1c of 8.5 Plan: Proceed with HD via R tunnelled HD catheter. If successful, will most likely removed his femoral trialysis catheter manager domestic on board to arrange outpatient HD Will need biopsy of ureteral mass with Urology, Dr. Mcrae I will arrange for outpatient follow-up with oncology after the path results have been available. I have discussed the case with Dr. Hermann Epperson from oncology Continue insulin sliding scale Continue DVT and GI prophylaxis
--- NOTE | 2020-09-14 14:28 | PRG ---
DATE OF SERVICE: 09/14/2020 SUBJECTIVE: Patient was seen and examined at bedside and overnight events noted. Patient denies any shortness of breath or chest pain or palpitation. No history of nausea or vomiting or diarrhea or fever or chills or cramps. OBJECTIVE: GENERAL: This is a morbidly obese male, in no apparent distress. VITAL SIGNS: Temperature 98.2. Heart rate 76. Respiratory rate 18. Blood pressure 167/70. HEENT: Atraumatic, normocephalic. Oral mucosa is moist. NECK: Supple. CARDIOVASCULAR: S1, S2 heard. Rate and rhythm regular. RESPIRATORY: Clear to auscultation. GASTROINTESTINAL: Abdomen is soft. MUSCULOSKELETAL: No tenderness. No edema. DERMATOLOGIC: No skin rash. NEUROLOGIC: Alert and awake and oriented x3. No focal neurologic deficits. Moving all the extremities. PSYCHIATRIC: Mood and affect normal. LABORATORY DATA: Potassium 4.4, BUN is 56, and creatinine is 4.5. ASSESSMENT AND PLAN: 1. End-stage renal disease. Continue dialysis as tolerated. 2. Hydronephrosis. 3. Anemia of chronic disease. 4. Hyperkalemia. 5. Edema. Continue dialysis as tolerated. Follow with Case Management for outpatient placement. We will follow. Job ID: [id number]
[2020-09-14] MEDS: Tuberculin PPD 0.1 ML VIAL I-DERMAL SCH (15:44)
[2020-09-14] MEDS ORDERED: Heparin 10,000 UNITS/ 10 ML VIAL ONE (16:58)
[2020-09-14] MEDS: Famotidine 20 MG TAB PO SCH (20:37)
[2020-09-14] MEDS: Simvastatin 5 MG TAB PO SCH (20:38)
[2020-09-15] MEDS: HumaLOG 300 UNITS/3 ML VIAL SC PRN ×3 (07:08→18:18)
[2020-09-15] MEDS: Gabapentin 300 MG CAP PO SCH ×2 (09:20→21:51)
[2020-09-15] MEDS: Amlodipine 5 MG TAB PO SCH (09:20)
[2020-09-15] MEDS: Polyethylene Glycol 3350 17 GM Packet PO SCH (09:21)
[2020-09-15] MEDS: Heparin 5,000 UNITS/ML VIAL SC SCH ×2 (09:21→21:51)
[2020-09-15] MEDS: Insulin Glargine 10 UNITS in Pre-Filled Syringe 1 EACH SC SCH (09:21)
[2020-09-15 11:54] LABS: Anion Gap 16 mmol/L (10-20); BUN (Urea Nitrogen) 49 mg/dL (8.4-25.7); Calc. Creatinine Clearance 30 mL/min (70-130); Calcium 9.6 mg/dL (7.8-10.44); Carbon Dioxide 26 mmol/L (23-31); Chloride 94 mmol/L (98-107); Glucose 248 mg/dL (83-110); Potassium 4.2 mmol/L (3.5-5.1); Sodium 132 mmol/L (136-145)
--- NOTE | 2020-09-15 12:17 | PDOC.HOSPP ---
- Subjective Encounter Date: 09/15/20 Subjective: Patient was dialyzed yesterday via R tunnelled catheter. R femoral trialysis catheter removed. Patient was comfortable lying in bed and enjoying his breakfast. He is medically clear pending transfer to SNF versus rehab as per PT recommendations. - Objective Vital Signs & Weight: Vital Signs (12 hours) Temp Pulse Resp BP Pulse Ox 09/15/20 09:20 81 09/15/20 08:00 98.0 F 81 18 130/76 94 L Weight Admit Weight 312 lb 9.6 oz Weight 312 lb 9.6 oz I&O: 09/14/20 09/15/20 09/16/20 06:59 06:59 06:59 Intake Total 300 1200 Balance 300 1200 Result Diagrams: 09/10/20 05:13 09/15/20 11:10 Additional Labs: Accuchecks 09/15/20 09/15/20 09/14/20 11:10 05:51 20:59 POC Glucose 214 H 159 H 242 H 09/14/20 09/14/20 16:58 11:53 POC Glucose 211 H 194 H Hospitalist ROS - Medication Medications: Active Medications Generic Name Dose Route Start Last Admin Trade Name Freq PRN Reason Stop Dose Admin Hydrocodone Bitart/Acetaminophen 1 tab 09/07/20 20:30 09/10/20 21:41 Hydrocodone/Acetaminophen 5/325 Mg Tablet PO 1 tab Q4H PRN Administration Moderate Pain (4-6) Amlodipine Besylate 5 mg 09/08/20 09:00 09/15/20 09:20 Amlodipine 5 Mg Tab PO 5 mg DAILY TATUM Administration Famotidine 20 mg 09/07/20 21:00 09/14/20 20:37 Famotidine 20 Mg Tab PO 20 mg 2100 TATUM Administration Gabapentin 300 mg 09/08/20 09:00 09/15/20 09:20 Gabapentin 300 Mg Cap PO 300 mg BID TATUM Administration Heparin Sodium (Porcine) 5,000 units 09/11/20 21:00 09/15/20 09:21 Heparin 5,000 Units/Ml Vial SC 5,000 units BID TATUM Administration Hydralazine HCl 10 mg 09/07/20 20:30 09/08/20 04:34 Hydralazine 20 Mg/Ml Vial SLOW IVP 10 mg Q6H PRN Administration SBP GREATER THAN 160 Insulin Glargine 10 units/ 0.1 mls @ 0 mls/hr 09/11/20 09:00 09/15/20 09:21 Miscellaneous Medication SC 0.1 mls QAM TATUM Administration Insulin Human Lispro 0 units 09/07/20 20:32 09/15/20 12:10 Humalog 300 Units/3 Ml Vial SC 4 unit .MODERATE SLIDING SC PRN Administration Moderate Correctional Scale Insulin Human Lispro 0 units 09/08/20 21:11 09/14/20 21:12 Humalog 300 Units/3 Ml Vial SC 2 units .BEDTIME SLIDING SC PRN Administration Bedtime Correctional Scale Pantoprazole Sodium 40 mg 09/08/20 09:00 09/15/20 09:21 Pantoprazole 40 Mg Tab PO 40 mg DAILY TATUM Administration Polyethylene Glycol 17 gm 09/08/20 09:00 09/15/20 09:21 Polyethylene Glycol 3350 17 Gm Packet PO Not Given DAILY TATUM Simvastatin 5 mg 09/08/20 21:00 09/14/20 20:38 Simvastatin 5 Mg Tab PO 5 mg HS TATUM Administration Sodium Chloride 10 ml 09/08/20 21:00 09/15/20 09:22 Flush - Normal Saline 10 Ml Syringe IVF 10 ml Q12HR TATUM Administration Hospitalist Exam Vitals: Vital Signs (12 hours) Temp Pulse Resp BP Pulse Ox 09/15/20 09:20 81 09/15/20 08:00 98.0 F 81 18 130/76 94 L Weight Admit Weight 312 lb 9.6 oz Weight 312 lb 9.6 oz General Appearance: NAD General - other findings: Morbidly obese and deconditioned Eye: anicteric sclera ENT: normocephalic atraumatic Neck: supple Heart - other findings: Right-sided tunneled catheter Respiratory: CTAB, no wheezes, no ronchi Gastrointestinal: soft, non-tender, non-distended Extremities: no clubbing, no edema Neurological: cranial nerve grossly intact Psychiatric: normal affect, normal behavior Hosp A/P (1) ESRD (end stage renal disease) on dialysis Code(s): N18.6 - END STAGE RENAL DISEASE; Z99.2 - DEPENDENCE ON RENAL DIALYSIS Status: Acute (2) Physical deconditioning Code(s): R53.81 - OTHER MALAISE Status: Acute (3) left mild hydronephrosis Status: Acute (4) Metastatic disease Code(s): C79.9 - SECONDARY MALIGNANT NEOPLASM OF UNSPECIFIED SITE Status: Suspected Qualifiers: Area of secondary neoplastic involvement: unspecified site Qualified Code(s): C79.9 - Secondary malignant neoplasm of unspecified site (5) Hyperkalemia Code(s): E87.5 - HYPERKALEMIA Status: Resolved (6) Metabolic acidosis Code(s): E87.2 - ACIDOSIS Status: Resolved (7) Acute kidney failure Status: Acute (8) Acute on chronic diastolic (congestive) heart failure Code(s): I50.33 - ACUTE ON CHRONIC DIASTOLIC (CONGESTIVE) HEART FAILURE Status: Acute (9) Anemia of chronic disease Code(s): D63.8 - ANEMIA IN OTHER CHRONIC DISEASES CLASSIFIED ELSEWHERE Status: Chronic (10) CAD (coronary artery disease) Code(s): I25.10 - ATHSCL HEART DISEASE OF [place] CORONARY ARTERY W/O ANG PCTRS Status: Chronic Qualifiers: Coronary Disease-Associated Artery/Lesion type: [place] artery [place] vs. transplanted heart: [place] heart Associated angina: without angina Qualified Code(s): I25.10 - Atherosclerotic heart disease of [place] coronary artery without angina pectoris (11) Diabetes type 2, controlled Code(s): E11.9 - TYPE 2 DIABETES MELLITUS WITHOUT COMPLICATIONS Status: Chronic Qualifiers: Diabetes mellitus long term care phlebotomist insulin use: without detention use Diabetes mellitus complication status: with kidney complications Diabetes mellitus complication detail: with chronic kidney disease Chronic kidney disease stage: stage 3 (moderate) Qualified Code(s): E11.22 - Type 2 diabetes mellitus with diabetic chronic kidney disease; N18.30 - Chronic kidney disease, stage 3 unspecified (12) Morbid obesity with BMI of 40.0-44.9, adult Code(s): E66.01 - MORBID (SEVERE) OBESITY DUE TO EXCESS CALORIES; Z68.41 - BODY MASS INDEX [BMI]40.0-44.9, ADULT Status: Chronic (13) Paroxysmal atrial fibrillation Code(s): I48.0 - PAROXYSMAL ATRIAL FIBRILLATION Status: Chronic - Plan Assessment Patient is a 70-year-old male with a known past medical history diastolic heart failure, paroxysmal atrial fibrillation previously on Xarelto, now discontinued after episodes of GI bleeding. He also has a history of right-sided colon cancer status post colectomy in 2004 followed by chemotherapy and radiation at [facility]. Had a negative colonoscopy a few months ago on routine surveillance. He presented from rehab where he went after hospitalization for acute renal failure on 09/02/2020. His admitting physician at the rehab sent him to our ER for poor urine output. During this admission, CT abdomen and pelvis captured renal mass along with several lytic lesions located in the ischium, both iliac wings and the right anterior superior iliac crest. 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 He was deemed high risk by interventional radiology for biopsy. At this time, Dr. Mcrae from urology has agreed to proceed with cystoureteroscopic biopsy. He has agreed to do it as outpatient as he could not make it in due to weather conditions this week. Patient was undergoing dialysis this admission. He now has a right-sided tunneled catheter. Placed on on 09/13. [facility] has been consulted to try and arrange outpatient hemodialysis. Acute renal failure -most likely obstructive uropathy secondary to malignancy Diffuse metastatic disease: Refer to the lesions above History of colon cancer status post partial colectomy followed by radiation and chemotherapy Physical deconditioning Type 2 diabetes mellitus -hemoglobin A1c of 8.5 Plan: Appreciate museum assistant from transportation dispatch manager to arrange outpatient HD Will need biopsy of ureteral mass with Urology, Dr. Mcrae. Please arrange upon discharge Patient will need to follow-up with oncology after the path results. I have discussed the case with Dr. Hermann Epperson from oncology. Continue insulin sliding scale Continue DVT and GI prophylaxis
--- NOTE | 2020-09-15 12:35 | PRG ---
DATE OF SERVICE: 09/15/2020 SUBJECTIVE: Patient was seen and examined at bedside and overnight events noted. Patient denies any shortness of breath or chest pain or palpitation. No history of nausea or vomiting or diarrhea or fever or chills or cramps. OBJECTIVE: GENERAL: This is a well-built male, in no apparent distress. VITAL SIGNS: Temperature 98.5. Heart Rate 87. Respiratory rate 16. Blood Pressure 126/69. HEENT: Atraumatic, normocephalic. Oral mucosa is moist. NECK: Supple. CARDIOVASCULAR: S1, S2 heard. Rate and rhythm regular. RESPIRATORY: Clear to auscultation. GASTROINTESTINAL: Abdomen is soft. MUSCULOSKELETAL: No tenderness. No edema. DERMATOLOGIC: No skin rash. NEUROLOGIC: Alert and awake and oriented x3. No focal neurologic deficits. Moving all the extremities. PSYCHIATRIC: Mood and affect normal. LABORATORY DATA: Potassium 4.2, BUN is 49, and creatinine is 4.4. ASSESSMENT AND PLAN: 1. End-stage renal disease. Continue dialysis as tolerated. 2. Hydronephrosis. 3. Anemia of chronic disease. 4. Hyperkalemia. 5. Edema. Plan to continue on dialysis as tolerated. We will follow. Job ID: [id number]
[2020-09-15] MEDS: Simvastatin 5 MG TAB PO SCH (21:51)
[2020-09-15] MEDS: Famotidine 20 MG TAB PO SCH (21:51)
[2020-09-16] MEDS ORDERED: Heparin 10,000 UNITS/ 10 ML VIAL ONE (10:43)
[2020-09-16 10:44] LABS: Hemoglobin 9.9 g/dL (14.0-18.0); Mean Corpuscular HGB CONC 31.9 g/dL (32.0-36.0); Mean Corpuscular Hemoglobin 26.1 pg (27.0-31.0); Mean Corpuscular Volume 81.7 fL (78.0-98.0); Platelet Count 166 thou/uL (130-400); RBC Distribution Width 13.5 % (11.5-14.5); Red Blood Cell (RBC) Count 3.81 mill/uL (4.70-6.10); White Blood Cell (WBC) Count 8.8 thou/uL (4.8-10.8)
[2020-09-16 11:02] LABS: Band 1 % (5-11); Eosinophils 2 % (0-10); Hypersemented Neutrophil SLIGHT; Hypochromia SLIGHT = 6-15 cells (100X) (0-5/hpf); Lymphocytes 15 % (21-51); MDiff Complete? YES; Monocytes 4 % (0-10); Neutrophil 77 % (42-75); Platelet Morphology Comment Appears Adequate; Reactive Lymphocytes 1 % (0-10)
[2020-09-16] MEDS: Activase 2 MG VIAL CATH SCH ×2 (11:03→11:04)
[2020-09-16] MEDS: Heparin 5,000 UNITS/ML VIAL SC SCH ×2 (11:33→20:50)
[2020-09-16] MEDS: Gabapentin 300 MG CAP PO SCH ×2 (11:33→20:50)
[2020-09-16] MEDS: Amlodipine 5 MG TAB PO SCH (11:33)
[2020-09-16] MEDS: Polyethylene Glycol 3350 17 GM Packet PO SCH (11:34)
[2020-09-16] MEDS: Insulin Glargine 10 UNITS in Pre-Filled Syringe 1 EACH SC SCH (11:39)
[2020-09-16] MEDS: HumaLOG 300 UNITS/3 ML VIAL SC PRN ×2 (11:40→21:36)
--- NOTE | 2020-09-16 16:32 | PDOC.HOSPP ---
- Subjective Encounter Date: 09/16/20 Encounter Time: 16:26 Subjective: Patient seen during dialysis. He has no new complaint except being uncomfortable on the hemodialysis. - Objective Vital Signs & Weight: Vital Signs (12 hours) Temp Pulse Resp BP Pulse Ox 09/16/20 11:33 74 09/16/20 08:00 98.5 F 74 18 112/58 L 95 Weight Admit Weight 312 lb 9.6 oz Weight 312 lb 9.6 oz I&O: 09/15/20 09/16/20 09/17/20 06:59 06:59 06:59 Intake Total 1200 1560 Balance 1200 1560 Result Diagrams: 09/16/20 10:00 09/15/20 11:10 Additional Labs: Accuchecks 09/16/20 09/16/20 09/15/20 11:20 05:58 20:38 POC Glucose 259 H 190 H 191 H 09/15/20 16:14 POC Glucose 282 H Hospitalist ROS - Medication Medications: Active Medications Generic Name Dose Route Start Last Admin Trade Name Freq PRN Reason Stop Dose Admin Hydrocodone Bitart/Acetaminophen 1 tab 09/07/20 20:30 09/10/20 21:41 Hydrocodone/Acetaminophen 5/325 Mg Tablet PO 1 tab Q4H PRN Administration Moderate Pain (4-6) Alteplase, Recombinant 2 mg 09/16/20 10:30 09/16/20 11:04 Activase 2 Mg Vial CATH 2 mg ASDIR TTAUM Administration Amlodipine Besylate 5 mg 09/08/20 09:00 09/16/20 11:33 Amlodipine 5 Mg Tab PO Not Given DAILY TATUM Famotidine 20 mg 09/07/20 21:00 09/15/20 21:51 Famotidine 20 Mg Tab PO 20 mg 2100 TATUM Administration Gabapentin 300 mg 09/08/20 09:00 09/16/20 11:33 Gabapentin 300 Mg Cap PO Not Given BID TATUM Heparin Sodium (Porcine) 5,000 units 09/11/20 21:00 09/16/20 11:33 Heparin 5,000 Units/Ml Vial SC Not Given BID TATUM Hydralazine HCl 10 mg 09/07/20 20:30 09/08/20 04:34 Hydralazine 20 Mg/Ml Vial SLOW IVP 10 mg Q6H PRN Administration SBP GREATER THAN 160 Insulin Glargine 10 units/ 0.1 mls @ 0 mls/hr 09/11/20 09:00 09/16/20 11:39 Miscellaneous Medication SC 0.1 mls QAM TATUM Administration Insulin Human Lispro 0 units 09/07/20 20:32 09/16/20 11:40 Humalog 300 Units/3 Ml Vial SC 6 unit .MODERATE SLIDING SC PRN Administration Moderate Correctional Scale Insulin Human Lispro 0 units 09/08/20 21:11 09/14/20 21:12 Humalog 300 Units/3 Ml Vial SC 2 units .BEDTIME SLIDING SC PRN Administration Bedtime Correctional Scale Pantoprazole Sodium 40 mg 09/08/20 09:00 09/16/20 11:33 Pantoprazole 40 Mg Tab PO Not Given DAILY TATUM Polyethylene Glycol 17 gm 09/08/20 09:00 09/16/20 11:34 Polyethylene Glycol 3350 17 Gm Packet PO Not Given DAILY TATUM Simvastatin 5 mg 09/08/20 21:00 09/15/20 21:51 Simvastatin 5 Mg Tab PO 5 mg HS TATUM Administration Sodium Chloride 10 ml 09/08/20 21:00 09/16/20 11:34 Flush - Normal Saline 10 Ml Syringe IVF Not Given Q12HR [facility] Hospitalist Exam Vitals: Vital Signs (12 hours) Temp Pulse Resp BP Pulse Ox 09/16/20 11:33 74 09/16/20 08:00 98.5 F 74 18 112/58 L 95 Weight Admit Weight 312 lb 9.6 oz Weight 312 lb 9.6 oz General Appearance: NAD, awake alert General - other findings: Morbidly obese Neck: no JVD Heart: RRR Respiratory: CTAB, no rales Gastrointestinal: soft, non-tender Extremities: no cyanosis, no edema Skin: normal turgor Neurological: no focal deficits Psychiatric: A&O x 3 Psychiatric - other findings: Dysphoric Hosp A/P (1) ESRD (end stage renal disease) on dialysis Code(s): N18.6 - END STAGE RENAL DISEASE; Z99.2 - DEPENDENCE ON RENAL DIALYSIS Status: Acute (2) Physical deconditioning Code(s): R53.81 - OTHER MALAISE Status: Acute (3) Metastatic disease Code(s): C79.9 - SECONDARY MALIGNANT NEOPLASM OF UNSPECIFIED SITE Status: Suspected Qualifiers: Area of secondary neoplastic involvement: unspecified site Qualified Code(s): C79.9 - Secondary malignant neoplasm of unspecified site (4) Acute on chronic diastolic (congestive) heart failure Code(s): I50.33 - ACUTE ON CHRONIC DIASTOLIC (CONGESTIVE) HEART FAILURE Status: Acute (5) Anemia of chronic disease Code(s): D63.8 - ANEMIA IN OTHER CHRONIC DISEASES CLASSIFIED ELSEWHERE Status: Chronic (6) Diabetes type 2, controlled Code(s): E11.9 - TYPE 2 DIABETES MELLITUS WITHOUT COMPLICATIONS Status: Chronic Qualifiers: Diabetes mellitus half-way insulin use: without half-way use Diabetes mellitus complication status: with kidney complications Diabetes mellitus complication detail: with chronic kidney disease Chronic kidney disease stage: stage 3 (moderate) Qualified Code(s): E11.22 - Type 2 diabetes mellitus with diabetic chronic kidney disease; N18.30 - Chronic kidney disease, stage 3 unspecified (7) Morbid obesity with BMI of 40.0-44.9, adult Code(s): E66.01 - MORBID (SEVERE) OBESITY DUE TO EXCESS CALORIES; Z68.41 - BODY MASS INDEX [BMI]40.0-44.9, ADULT Status: Chronic (8) Paroxysmal atrial fibrillation Code(s): I48.0 - PAROXYSMAL ATRIAL FIBRILLATION Status: Chronic (9) Obstructive uropathy Code(s): N13.9 - OBSTRUCTIVE AND REFLUX UROPATHY, UNSPECIFIED Status: Acute (10) Renal mass Code(s): N28.89 - OTHER SPECIFIED DISORDERS OF KIDNEY AND URETER Status: Chronic (11) Ureteral mass Code(s): N28.89 - OTHER SPECIFIED DISORDERS OF KIDNEY AND URETER Status: Chronic (12) History of colon cancer Code(s): Z85.038 - PERSONAL HISTORY OF MALIGNANT NEOPLASM OF LARGE INTESTINE Status: Chronic - Plan Continue hemodialysis. Nephrology is following. Patient will need biopsy of ureteral mass with Urology, Dr. Mcrae. Patient will also need to follow-up with oncology-Dr. Epperson after the pathology results. Continue insulin sliding scale. Pain management as needed. Continue DVT and GI prophylaxis
--- NOTE | 2020-09-16 17:28 | PRG ---
DATE OF SERVICE: 09/16/2020 SUBJECTIVE: Patient was seen and examined at bedside and overnight events noted. Patient denies any shortness of breath or chest pain or palpitation. No history of nausea or vomiting or diarrhea or fever or chills or cramps. OBJECTIVE: GENERAL: This is a morbidly obese male, in no apparent distress. VITAL SIGNS: Temperature Heart rate 74. Respiratory rate 18. Blood pressure 112/58. HEENT: Atraumatic, normocephalic. Oral mucosa is moist NECK: Supple. CARDIOVASCULAR: S1, S2 heard. Rate and rhythm regular. RESPIRATORY: Clear to auscultation. GASTROINTESTINAL: Abdomen is soft. MUSCULOSKELETAL: No tenderness. No edema. DERMATOLOGIC: No skin rash. NEUROLOGIC: Alert and awake and oriented X3. No focal neurologic deficits. Moving all the extremities. PSYCHIATRIC: Mood and affect normal. LABORATORY DATA: Not done today. ASSESSMENT AND PLAN: 1. End-stage renal disease, continue dialysis as tolerated. 2. Hydronephrosis. 3. Anemia of chronic disease. 4. Hyperkalemia. 5. Edema. Plan to continue on dialysis. The patient had issue with dialysis access today. If continues to have problem, might need to replace it. Plan discussed with Dr. Pool also. Job ID: [id number]
[2020-09-16] MEDS: Famotidine 20 MG TAB PO SCH (20:50)
[2020-09-16] MEDS: Simvastatin 5 MG TAB PO SCH (21:36)
[2020-09-17] MEDS: HumaLOG 300 UNITS/3 ML VIAL SC PRN ×4 (06:05→20:58)
[2020-09-17] MEDS: Polyethylene Glycol 3350 17 GM Packet PO SCH (06:11)
[2020-09-17] MEDS: Heparin 5,000 UNITS/ML VIAL SC SCH ×2 (09:48→20:25)
[2020-09-17] MEDS: Gabapentin 300 MG CAP PO SCH ×2 (09:48→20:24)
[2020-09-17] MEDS: Insulin Glargine 10 UNITS in Pre-Filled Syringe 1 EACH SC SCH (09:48)
[2020-09-17] MEDS: Amlodipine 5 MG TAB PO SCH (09:48)
[2020-09-17 12:20] LABS: Anion Gap 17 mmol/L (10-20); BUN (Urea Nitrogen) 56 mg/dL (8.4-25.7); Calc. Creatinine Clearance 31 mL/min (70-130); Calcium 9.6 mg/dL (7.8-10.44); Carbon Dioxide 21 mmol/L (23-31); Chloride 96 mmol/L (98-107); Glucose 268 mg/dL (83-110); Potassium 3.8 mmol/L (3.5-5.1); Sodium 130 mmol/L (136-145)
--- NOTE | 2020-09-17 13:48 | PRG ---
DATE OF SERVICE: 09/17/2020 SUBJECTIVE: Patient was seen and examined at bedside and overnight events noted. Patient denies any shortness of breath or chest pain or palpitation. No history of nausea or vomiting or diarrhea or fever or chills or cramps. OBJECTIVE: General: This is an obese male in no apparent distress. Vital Signs: Temperature 97.9. Heart Rate 80. Respiratory rate 18. Blood pressure 155/69. HEENT: Atraumatic, normocephalic. Oral mucosa is moist. Neck: Supple. Cardiovascular: S1, S2 heard. Rate and rhythm regular. Respiratory: Clear to auscultation. Gastrointestinal: Abdomen is soft. Musculoskeletal: No tenderness. No edema. Dermatologic: No skin rash. Neurologic: Alert and awake and oriented x3. No focal neurologic deficits. Moving all the extremities. Psychiatric: Mood and affect normal. LABORATORY DATA: Potassium 3.8, BUN is 56, creatinine is 4.2. ASSESSMENT AND PLAN: 1. End-stage renal disease. Continue dialysis as tolerated. 2. Hyperkalemia, better. 3. Anemia of chronic disease. 4. Hydronephrosis. 5. Edema. Follow with Urology. We will plan for dialysis tomorrow. We will recheck labs in the morning and if the access is an issue, we might have to exchange a tunneled catheter. Dr. Pool is aware and willing to exchange before discharge. Job ID: [id number]
--- NOTE | 2020-09-17 17:34 | PDOC.HOSPP ---
- Subjective Encounter Date: 09/17/20 Encounter Time: 17:32 Subjective: Patient has no complaint today. No issues overnight. - Objective Vital Signs & Weight: Vital Signs (12 hours) Temp Pulse Resp BP Pulse Ox 09/17/20 09:48 80 09/17/20 08:00 97.9 F 80 18 155/69 H 95 Weight Admit Weight 312 lb 9.6 oz Weight 312 lb 9.6 oz I&O: 09/16/20 09/17/20 09/18/20 06:59 06:59 06:59 Intake Total 1560 800 Balance 1560 800 Result Diagrams: 09/16/20 10:00 09/17/20 11:55 Additional Labs: Accuchecks 09/17/20 09/17/20 09/17/20 16:20 11:15 05:49 POC Glucose 198 H 241 H 172 H 09/16/20 09/16/20 21:12 18:40 POC Glucose 314 H 160 H Hospitalist ROS - Medication Medications: Active Medications Generic Name Dose Route Start Last Admin Trade Name Freq PRN Reason Stop Dose Admin Hydrocodone Bitart/Acetaminophen 1 tab 09/07/20 20:30 09/10/20 21:41 Hydrocodone/Acetaminophen 5/325 Mg Tablet PO 1 tab Q4H PRN Administration Moderate Pain (4-6) Alteplase, Recombinant 2 mg 09/16/20 10:30 09/16/20 11:04 Activase 2 Mg Vial CATH 2 mg ASDIR TATUM Administration Amlodipine Besylate 5 mg 09/08/20 09:00 09/17/20 09:48 Amlodipine 5 Mg Tab PO 5 mg DAILY TATUM Administration Famotidine 20 mg 09/07/20 21:00 09/16/20 20:50 Famotidine 20 Mg Tab PO 20 mg 2100 TATUM Administration Gabapentin 300 mg 09/08/20 09:00 09/17/20 09:48 Gabapentin 300 Mg Cap PO 300 mg BID TATUM Administration Heparin Sodium (Porcine) 5,000 units 09/11/20 21:00 09/17/20 09:48 Heparin 5,000 Units/Ml Vial SC 5,000 units BID TATUM Administration Hydralazine HCl 10 mg 09/07/20 20:30 09/08/20 04:34 Hydralazine 20 Mg/Ml Vial SLOW IVP 10 mg Q6H PRN Administration SBP GREATER THAN 160 Insulin Glargine 10 units/ 0.1 mls @ 0 mls/hr 09/11/20 09:00 09/17/20 09:48 Miscellaneous Medication SC 0.1 mls QAM TATUM Administration Insulin Human Lispro 0 units 09/07/20 20:32 09/17/20 11:26 Humalog 300 Units/3 Ml Vial SC 4 unit .MODERATE SLIDING SC PRN Administration Moderate Correctional Scale Insulin Human Lispro 0 units 09/08/20 21:11 09/14/20 21:12 Humalog 300 Units/3 Ml Vial SC 2 units .BEDTIME SLIDING SC PRN Administration Bedtime Correctional Scale Pantoprazole Sodium 40 mg 09/08/20 09:00 09/17/20 09:48 Pantoprazole 40 Mg Tab PO 40 mg DAILY TATUM Administration Polyethylene Glycol 17 gm 09/08/20 09:00 09/17/20 06:11 Polyethylene Glycol 3350 17 Gm Packet PO 17 gm DAILY TATUM Administration Simvastatin 5 mg 09/08/20 21:00 09/16/20 21:36 Simvastatin 5 Mg Tab PO 5 mg HS TATUM Administration Sodium Chloride 10 ml 09/08/20 21:00 09/17/20 09:49 Flush - Normal Saline 10 Ml Syringe IVF 10 ml Q12HR TATUM Administration Hospitalist Exam Vitals: Vital Signs (12 hours) Temp Pulse Resp BP Pulse Ox 09/17/20 09:48 80 09/17/20 08:00 97.9 F 80 18 155/69 H 95 Weight Admit Weight 312 lb 9.6 oz Weight 312 lb 9.6 oz General Appearance: NAD, awake alert Neck: supple, no JVD Heart: RRR Respiratory: CTAB, no wheezes, no rales, no ronchi Gastrointestinal: soft, non-tender, non-distended, normal bowel sounds Extremities: no cyanosis, no edema Skin: no rashes Neurological: no focal deficits Musculoskeletal: normal strength Psychiatric: normal affect, normal behavior, A&O x 3 Hosp A/P (1) ESRD (end stage renal disease) on dialysis Code(s): N18.6 - END STAGE RENAL DISEASE; Z99.2 - DEPENDENCE ON RENAL DIALYSIS Status: Acute (2) Physical deconditioning Code(s): R53.81 - OTHER MALAISE Status: Acute (3) Metastatic disease Code(s): C79.9 - SECONDARY MALIGNANT NEOPLASM OF UNSPECIFIED SITE Status: S uspected Qualifiers: Area of secondary neoplastic involvement: unspecified site Qualified Code(s): C79.9 - Secondary malignant neoplasm of unspecified site (4) Acute on chronic diastolic (congestive) heart failure Code(s): I50.33 - ACUTE ON CHRONIC DIASTOLIC (CONGESTIVE) HEART FAILURE Status: Acute (5) Anemia of chronic disease Code(s): D63.8 - ANEMIA IN OTHER CHRONIC DISEASES CLASSIFIED ELSEWHERE Status: Chronic (6) Diabetes type 2, controlled Code(s): E11.9 - TYPE 2 DIABETES MELLITUS WITHOUT COMPLICATIONS Status: Chronic Qualifiers: Diabetes mellitus superintendent terminal insulin use: without assisted use Diabetes mellitus complication status: with kidney complications Diabetes mellitus complication detail: with chronic kidney disease Chronic kidney disease stage: stage 3 (moderate) Qualified Code(s): E11.22 - Type 2 diabetes mellitus with diabetic chronic kidney disease; N18.30 - Chronic kidney disease, stage 3 unspecified (7) Morbid obesity with BMI of 40.0-44.9, adult Code(s): E66.01 - MORBID (SEVERE) OBESITY DUE TO EXCESS CALORIES; Z68.41 - BODY MASS INDEX [BMI]40.0-44.9, ADULT Status: Chronic (8) Paroxysmal atrial fibrillation Code(s): I48.0 - PAROXYSMAL ATRIAL FIBRILLATION Status: Chronic (9) Obstructive uropathy Code(s): N13.9 - OBSTRUCTIVE AND REFLUX UROPATHY, UNSPECIFIED Status: Acute (10) Renal mass Code(s): N28.89 - OTHER SPECIFIED DISORDERS OF KIDNEY AND URETER Status: Chronic (11) Ureteral mass Code(s): N28.89 - OTHER SPECIFIED DISORDERS OF KIDNEY AND URETER Status: Chronic (12) History of colon cancer Code(s): Z85.038 - PERSONAL HISTORY OF MALIGNANT NEOPLASM OF LARGE INTESTINE Status: Chronic - Plan Continue hemodialysis. Nephrology is following. Patient would like to have his hemodialysis on Friday and Friday schedule. Patient will need biopsy of ureteral mass with Urology, Dr. Mcrae. He will follow with Dr. Mcrae as outpatient. Patient will also need to follow-up with oncology-Dr. Epperson after the pathology results. Continue insulin sliding scale. Pain management as needed. Continue DVT and GI prophylaxis
[2020-09-17] MEDS: Famotidine 20 MG TAB PO SCH (20:24)
[2020-09-17] MEDS: Simvastatin 5 MG TAB PO SCH (20:25)
--- NOTE | 2020-09-18 07:47 | PDOC.HOSPP ---
- Subjective Encounter Date: 09/18/20 Encounter Time: 11:00 Subjective: Patient without specific complaints. He is still quite weak and is been needing assistance to get up with physical therapy. Patient is adamant that he does not want to go to swing bed or other facility, but rather wants to go home. Palliative care did discuss this with the patient and with his and his and family are agreeable to him coming home. - Objective Vital Signs & Weight: Vital Signs (12 hours) Temp Pulse Resp BP Pulse Ox 09/17/20 20:25 97 09/17/20 20:00 98.0 F 69 16 119/58 L 97 Weight Admit Weight 312 lb 9.6 oz Weight 312 lb 9.6 oz I&O: 09/17/20 09/18/20 09/19/20 06:59 06:59 06:59 Intake Total 800 650 Balance 800 650 Result Diagrams: 09/16/20 10:00 09/17/20 11:55 Additional Labs: Accuchecks 09/18/20 09/17/20 09/17/20 05:03 20:54 16:20 POC Glucose 77 233 H 198 H 09/17/20 11:15 POC Glucose 241 H Hospitalist ROS - Review of Systems Constitutional: denies: fever, chills Respiratory: denies: cough, shortness of breath Cardiovascular: denies: chest pain, palpitations Gastrointestinal: denies: nausea, vomiting, abdominal pain - Medication Medications: Active Medications Generic Name Dose Route Start Last Admin Trade Name Freq PRN Reason Stop Dose Admin Alteplase, Recombinant 2 mg 09/16/20 10:30 09/16/20 11:04 Activase 2 Mg Vial CATH 2 mg ASDIR TATUM Administration Amlodipine Besylate 5 mg 09/08/20 09:00 09/17/20 09:48 Amlodipine 5 Mg Tab PO 5 mg DAILY TATUM Administration Famotidine 20 mg 09/07/20 21:00 09/17/20 20:24 Famotidine 20 Mg Tab PO 20 mg 2100 TATUM Administration Gabapentin 300 mg 09/08/20 09:00 09/17/20 20:24 Gabapentin 300 Mg Cap PO 300 mg BID TATUM Administration Heparin Sodium (Porcine) 5,000 units 09/11/20 21:00 09/17/20 20:25 Heparin 5,000 Units/Ml Vial SC 5,000 units BID TATUM Administration Hydralazine HCl 10 mg 09/07/20 20:30 09/08/20 04:34 Hydralazine 20 Mg/Ml Vial SLOW IVP 10 mg Q6H PRN Administration SBP GREATER THAN 160 Insulin Glargine 10 units/ 0.1 mls @ 0 mls/hr 09/11/20 09:00 09/17/20 09:48 Miscellaneous Medication SC 0.1 mls QAM TATUM Administration Insulin Human Lispro 0 units 09/07/20 20:32 09/17/20 18:31 Humalog 300 Units/3 Ml Vial SC 2 unit .MODERATE SLIDING SC PRN Administration Moderate Correctional Scale Insulin Human Lispro 0 units 09/08/20 21:11 09/17/20 20:58 Humalog 300 Units/3 Ml Vial SC 2 units .BEDTIME SLIDING SC PRN Administration Bedtime Correctional Scale Pantoprazole Sodium 40 mg 09/08/20 09:00 09/17/20 09:48 Pantoprazole 40 Mg Tab PO 40 mg DAILY TATUM Administration Polyethylene Glycol 17 gm 09/08/20 09:00 09/17/20 06:11 Polyethylene Glycol 3350 17 Gm Packet PO 17 gm DAILY TATUM Administration Simvastatin 5 mg 09/08/20 21:00 09/17/20 20:25 Simvastatin 5 Mg Tab PO 5 mg HS TATUM Administration Sodium Chloride 10 ml 09/08/20 21:00 09/17/20 20:26 Flush - Normal Saline 10 Ml Syringe IVF 10 ml Q12HR TATUM Administration Hospitalist Exam Vitals: Vital Signs (12 hours) Temp Pulse Resp BP Pulse Ox 09/17/20 20:25 97 09/17/20 20:00 98.0 F 69 16 119/58 L 97 Weight Admit Weight 312 lb 9.6 oz Weight 312 lb 9.6 oz General Appearance: NAD, awake alert ENT: moist mucosa Heart: RRR, no murmur, no gallops, no rubs Respiratory: CTAB, no wheezes, no rales, no ronchi Gastrointestinal: soft, non-tender, non-distended, normal bowel sounds Extremities: no edema Psychiatric: normal affect, normal behavior, A&O x 3 Hosp A/P - Plan (1) ESRD (end stage renal disease) on dialysis Code(s): N18.6 - END STAGE RENAL DISEASE; Z99.2 - DEPENDENCE ON RENAL DIALYSIS Status: Acute (2) Physical deconditioning Code(s): R53.81 - OTHER MALAISE Status: Acute (3) Metastatic disease Code(s): C79.9 - SECONDARY MALIGNANT NEOPLASM OF UNSPECIFIED SITE Status: Suspected Qualifiers: Area of secondary neoplastic involvement: unspecified site Qualified Code(s): C79.9 - Secondary malignant neoplasm of unspecified site (4) Acute on chronic diastolic (congestive) heart failure Code(s): I50.33 - ACUTE ON CHRONIC DIASTOLIC (CONGESTIVE) HEART FAILURE Status: Acute (5) Anemia of chronic disease Code(s): D63.8 - ANEMIA IN OTHER CHRONIC DISEASES CLASSIFIED ELSEWHERE Status: Chronic (6) Diabetes type 2, controlled Code(s): E11.9 - TYPE 2 DIABETES MELLITUS WITHOUT COMPLICATIONS Status: Chronic Qualifiers: Diabetes mellitus longterm insulin use: without longterm use Diabetes mellitus complication status: with kidney complications Diabetes mellitus complication detail: with chronic kidney disease Chronic kidney disease stage: stage 3 (moderate) Qualified Code(s): E11.22 - Type 2 diabetes mellitus with diabetic chronic kidney disease; N18.30 - Chronic kidney disease, stage 3 unspecified (7) Morbid obesity with BMI of 40.0-44.9, adult Code(s): E66.01 - MORBID (SEVERE) OBESITY DUE TO EXCESS CALORIES; Z68.41 - BODY MASS INDEX [BMI]40.0-44.9, ADULT Status: Chronic (8) Paroxysmal atrial fibrillation Code(s): I48.0 - PAROXYSMAL ATRIAL FIBRILLATION Status: Chronic (9) Obstructive uropathy Code(s): N13.9 - OBSTRUCTIVE AND REFLUX UROPATHY, UNSPECIFIED Status: Acute (10) Renal mass Code(s): N28.89 - OTHER SPECIFIED DISORDERS OF KIDNEY AND URETER Status: Chronic (11) Ureteral mass Code(s): N28.89 - OTHER SPECIFIED DISORDERS OF KIDNEY AND URETER Status: Chronic (12) History of colon cancer Code(s): Z85.038 - PERSONAL HISTORY OF MALIGNANT NEOPLASM OF LARGE INTESTINE Status: Chronic Continue hemodialysis. Nephrology is following. Patient would like to have his hemodialysis on Friday and Friday schedule. Patient will need biopsy of ureteral mass with Urology, Dr. Mcrae. He will follow with Dr. Mcrae as outpatient. Patient will also need to follow-up with oncology-Dr. Epperson after the pathology results. Continue insulin sliding scale. Pain management as needed. Continue DVT and GI prophylaxis Disposition: Per family request will discharge patient home with home health. He will need to follow-up with Dr. Mcrae as an outpatient to have a biopsy done of the mass adjacent to his ureter. He will also need oncology follow-up a fter that.
[2020-09-18 11:14] VITALS: BP 126/52; TEMP 98.3
--- NOTE | 2020-09-18 11:57 | PRG ---
DATE OF SERVICE: 09/18/2020 SUBJECTIVE: A 70-year-old gentleman being seen for end-stage renal disease. The patient denies any nausea, vomiting, or chest pain. PHYSICAL EXAMINATION: General: The patient is awake and alert. Vital Signs: Afebrile, pulse 75, breathing at 16, blood pressure was 130/70. HEENT: Head normocephalic and atraumatic. Eyes intact, no ulcers. Nose intact, no ulcers. Ears intact, no ulcers. Neck: Supple. No JVD. Chest: Symmetrical and clear. Cardiovascular: Shows S1 and S2, no rub, no murmur. Gastrointestinal: Abdomen is soft, bowel sounds positive. Extremities: Show no edema or ulcers. Skin: Shows no rash or petechiae. Musculoskeletal: Shows no joint swelling or stiffness. Genitourinary: Shows no Whitley or CVA tenderness. Neurologic: Motor intact. Cranial nerves intact. LABORATORY DATA: Reviewed. ASSESSMENT AND PLAN: 1. Stage 6 chronic kidney disease, plan dialysis. 2. Hypertension, stable. 3. Anemia, stable. 4. Medication based on GFR appropriate. Job ID: [id number]
[2020-09-18] MEDS: Heparin 5,000 UNITS/ML VIAL SC SCH (12:53)
[2020-09-18] MEDS: Gabapentin 300 MG CAP PO SCH (12:56)
[2020-09-18] MEDS: Amlodipine 5 MG TAB PO SCH (12:57)
[2020-09-18] MEDS: Insulin Glargine 10 UNITS in Pre-Filled Syringe 1 EACH SC SCH (12:57)
[2020-09-18] MEDS: HumaLOG 300 UNITS/3 ML VIAL SC PRN ×2 (12:58→17:22)
[2020-09-18] MEDS: Polyethylene Glycol 3350 17 GM Packet PO SCH (13:03)
--- NOTE | 2020-09-18 15:32 | PDOC.DS.DS ---
Provider Date of Admission: 09/07/20 19:11 Date of Discharge: 09/18/20 Admitting Provider: Emmanuel Lockett MD Consultations: General Surgery (Dr. Gaytan and Dr. Pool), Nephrology (Dr. Manuel and Dr. Dial), Urology (Dr. Mcrae) Primary Care Physician: Lc Sidhu MD Course Hospital Course: This is a 70-year-old male with a history of chronic renal failure who presented to the hospital from [facility] bed after he had worsening of his renal failure and a CT scan showed likely metastatic disease. Patient did have nephrology consulted. He was determined to be in end-stage renal disease and hemodialysis catheter was placed. He was able to initiate hemodialysis and then a tunneled more long-term catheter along with a fistula were placed. Dr. Mcrae with urology was consulted and he determined that patient likely could benefit from a biopsy of the periureteral mass as an outpatient. Plan is to get this done and then have patient follow-up with oncology. Patient did have improvement during his hospitalization however is still very weak for getting up and trying to move around. Physical therapy did recommend sending him to rehab or senior care facility, however, patient is determined that he wants to go home. After discussion with patient and his they have decided to go home with home health. Palliative care did talk with the patient and his and they will continue to have discussions with him in the future as they learn more from the biopsies. Pertinent Studies: CT Abdomen Pelvis WO Con History: Worsening renal function. Hydronephrosis. Comparison: Abdomen pelvis CT August 27, 2020 Findings: Lung bases are clear. No pericardial effusion. Numerous small supraumbilical fat-containing hernias. Partial duplication left renal collecting system with inflammation along the proximal mid ureter to the level of the pelvic brim. Distal to the pelvic brim there is no significant enlargement or stranding. No significant right-sided hydroureteronephrosis. There is mass effect of the proximal right ureter due to a fat-containing retroperitoneal mass measuring 11 cm in craniocaudal length of the transverse dimension of 6.8 cm and a AP dimension of 4.9 cm. Numerous abnormal retroperitoneal periaortic, retrocaval, and aortocaval lymph nodes. No renal calculi. There is erosive change of the right anterior superior L1 endplate with partial erosion and soft tissue mass of the anterior left L1/L2 osteophyte. Incompletely evaluated concern for osteolytic lesion of the left ischium with pathologic fracture. Osteolytic focus of the left iliac wing along the right ilium near the SI joint. Focal area of ostial lysis of the right iliac wing near the anterior superior iliac crest. Pathologic fracture through left posterior ninth rib. Layering high density within the right side of the urinary bladder. Metastatic iliac lymph nodes. Impression: 1. Partial duplication of the left renal collecting system with moderate left hydroureteronephrosis, urothelial thickening, and stranding to the level of of pelvic brim for which an abrupt transition to normal caliber without standing. This is concerning for underlying mass, urothelial carcinoma. Either a CT urogram or direct visualization is recommended. 2. Metastatic retroperitoneal periaortic as well as internal and external iliac adenopathy. 3. Extensive osseous metastatic disease. 4. Solid mass superior pole left kidney measuring 1.6 cm may reflect underlying malignancy. 5. 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 Resuscitation Status: 09/07/20 20:26 Resuscitation Status Routine Resuscitation Status: FULL: Full Resuscitation Lab Results: 09/16/20 10:00 09/17/20 11:55 Abnormal Lab Results - Last 48 hrs 09/17/20 11:55: Sodium 130 L, Chloride 96 L, Carbon Dioxide 21 L, BUN 56 H, Creatinine 4.35 H Vitals: Vital Signs (12 hours) Temp Pulse Resp BP Pulse Ox 09/18/20 12:57 72 09/18/20 08:00 98.3 F 72 18 126/52 L 94 L 09/18/20 07:50 95 Weight Admit Weight 312 lb 9.6 oz Weight 312 lb 9.6 oz Physical Exam: The patient was seen and examined on the day of discharge. Problem Assessment: (1) ESRD (end stage renal disease) on dialysis Code(s): N18.6 - END STAGE RENAL DISEASE; Z99.2 - DEPENDENCE ON RENAL DIALYSIS Status: Acute (2) Physical deconditioning Code(s): R53.81 - OTHER MALAISE Status: Acute (3) Metastatic disease Code(s): C79.9 - SECONDARY MALIGNANT NEOPLASM OF UNSPECIFIED SITE Status: Suspected Qualifiers: Area of secondary neoplastic involvement: unspecified site Qualified Code(s): C79.9 - Secondary malignant neoplasm of unspecified site (4) Acute on chronic diastolic (congestive) heart failure Code(s): I50.33 - ACUTE ON CHRONIC DIASTOLIC (CONGESTIVE) HEART FAILURE Status: Acute (5) Anemia of chronic disease Code(s): D63.8 - ANEMIA IN OTHER CHRONIC DISEASES CLASSIFIED ELSEWHERE Status: Chronic (6) Diabetes type 2, controlled Code(s): E11.9 - TYPE 2 DIABETES MELLITUS WITHOUT COMPLICATIONS Status: Chronic Qualifiers: 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 insulin use: without group home use Diabetes mellitus complication status: with kidney complications Diabetes mellitus complication detail: with chronic kidney disease Chronic kidney disease stage: stage 3 (moderate) Qualified Code(s): E11.22 - Type 2 diabetes mellitus with diabetic chronic kidney disease; N18.30 - Chronic kidney disease, stage 3 unspecified (7) Morbid obesity with BMI of 40.0-44.9, adult Code(s): E66.01 - MORBID (SEVERE) OBESITY DUE TO EXCESS CALORIES; Z68.41 - BODY MASS INDEX [BMI]40.0-44.9, ADULT Status: Chronic (8) Paroxysmal atrial fibrillation Code(s): I48.0 - PAROXYSMAL ATRIAL FIBRILLATION Status: Chronic (9) Obstructive uropathy Code(s): N13.9 - OBSTRUCTIVE AND REFLUX UROPATHY, UNSPECIFIED Status: Acute (10) Renal mass Code(s): N28.89 - OTHER SPECIFIED DISORDERS OF KIDNEY AND URETER Status: Chr onic (11) Ureteral mass Code(s): N28.89 - OTHER SPECIFIED DISORDERS OF KIDNEY AND URETER Status: Chronic (12) History of colon cancer Code(s): Z85.038 - PERSONAL HISTORY OF MALIGNANT NEOPLASM OF LARGE INTESTINE Status: Chronic Plan of Treatment: Resume home medications and discharge home. Patient has outpatient hemodialysis set up. He is also to follow-up with urology as an outpatient for diagnostic procedure to find out what his cancer is. Time Spent in discharge related activities (mins): 35 Plan Home Medications: Medication Instructions Recorded Confirmed Type Aspirin [Aspirin EC] 81 mg PO DAILY 07/23/16 08/31/20 History Fish Oil 1,000 mg PO DAILY 07/25/19 08/31/20 History Ferrous Sulfate 324 mg PO DAILY 08/27/20 08/31/20 History Gabapentin 300 mg PO TID 08/27/20 09/12/20 History Pantoprazole [Protonix] 40 mg PO DAILY 08/27/20 09/12/20 History Pravastatin Sodium 10 mg PO HS 08/27/20 08/31/20 History Amlodipine [Norvasc] 5 mg PO DAILY tab 08/31/20 09/12/20 Rx Magnesium Oxide 800 mg PO BID tab 08/31/20 08/31/20 Rx glipiZIDE [Glucotrol] 10 mg PO 09/12/20 History Allergies: levofloxacin [From Levaquin] Allergy (Intermediate, Verified 09/08/20 02:20) ITCHING PT STARTED ITCHING SHORTLY AFTER INFUSION STARTED. Penicillins Allergy (Verified 09/08/20 02:20) Influenza Virus Vaccines Adverse Reaction (Verified 09/08/20 02:20) WEAKNESS AND MYALGIA Activity:: Activity as Tolerated Nourishment:: Diabetic Diet, Renal Diet Therapies:: Home Health (PT/OT/medical), Occupational Therapy, Physical Therapy Additional Therapy Instructions:: Continue outpatient hemodialysis Equipment/Supplies:: Not Applicable IV Therapy:: Central Line Care (Cuffed dialysis catheter) Referrals: Cyril Mcrae MD [Active] - (1 to 2 weeks to set up biopsy of abdominal mass, then will need to follow-up with oncology after that) Lc Sidhu [Primary Care Provider] - Disposition: HOME HEALTH Quality CORE MEASURES:: N/A
== END 2020-09-18 22:15 | disposition home health service (06) | DRG 673 ==
LOC: ONC 19:11
PROVIDERS: ADMIT Internal Medicine Infectious Disease; ATTEND Emergency Medicine
PROC: 02HV33Z Insertion of Infusion Device into Superior Vena Cava, Percutaneous Approach (ICD-10-PCS; 2020-09-08)
PROC: 5A1D70Z Performance of Urinary Filtration, Intermittent, Less than 6 Hours Per Day (ICD-10-PCS; 2020-09-08)
PROC: 0JH60XZ Insertion of Tunneled Vascular Access Device into Chest Subcutaneous Tissue and Fascia, Open Approach (ICD-10-PCS; principal; 2020-09-13)
PROC: 02HV33Z Insertion of Infusion Device into Superior Vena Cava, Percutaneous Approach (ICD-10-PCS; 2020-09-13)
PROC: B548ZZA Ultrasonography of Superior Vena Cava, Guidance (ICD-10-PCS; 2020-09-13)
PROC: B5181ZA Fluoroscopy of Superior Vena Cava using Low Osmolar Contrast, Guidance (ICD-10-PCS; 2020-09-13)
DX: N17.9 Acute kidney failure, unspecified (principal); I50.33 Acute on chronic diastolic (congestive) heart failure; Z68.41 Body mass index [BMI] 40.0-44.9, adult; E87.2 Acidosis; I13.2 Hypertensive heart and chronic kidney disease with heart failure and with stage 5 chronic kidney disease, or end stage renal disease; C79.00 Secondary malignant neoplasm of unspecified kidney and renal pelvis; N13.30 Unspecified hydronephrosis; E11.40 Type 2 diabetes mellitus with diabetic neuropathy, unspecified; I25.10 Atherosclerotic heart disease of native coronary artery without angina pectoris; E87.5 Hyperkalemia; E11.22 Type 2 diabetes mellitus with diabetic chronic kidney disease; R53.81 Other malaise; E66.01 Morbid (severe) obesity due to excess calories; I48.0 Paroxysmal atrial fibrillation; N28.89 Other specified disorders of kidney and ureter; D63.1 Anemia in chronic kidney disease; N18.6 End stage renal disease; Z88.0 Allergy status to penicillin; Z88.1 Allergy status to other antibiotic agents; Z88.7 Allergy status to serum and vaccine; Z90.49 Acquired absence of other specified parts of digestive tract; Z87.891 Personal history of nicotine dependence; Z85.038 Personal history of other malignant neoplasm of large intestine; Z99.2 Dependence on renal dialysis
CPT/HCPCS: 36415; 36416; 71045; 80048; 80076; 83036; 83735; 84100; 85007; 85025; 85027; 85610; 86580; 86704; 86706; 86803; 87340; 90935; 93970; C1751; C1752; G0257; J0360; J1644; J1815; J2704; J2997; J3010; J3490; S0020

== ENCOUNTER 2020-10-07 17:24 | Emergency (ER) | payer MEDICARE ==
[2020-10-07 17:56] LABS: #Basophils 0.1 thou/uL (0.0-0.2); #Eosinphils 0.1 thou/uL (0.0-0.7); #Monocytes 0.3 thou/uL (0.11-0.59); #Neutrophils 4.2 thou/uL (1.40-6.50); %Eosinophils 1.9 % (0.0-10.0); %Lymphocytes 17.9 % (21.0-51.0); %Monocytes 5.8 % (0.0-10.0); %Neutrophils 73.5 % (42.0-75.0); Hemoglobin 7.7 g/dL (14.0-18.0); Mean Corpuscular HGB CONC 32.1 g/dL (32.0-36.0); Mean Corpuscular Hemoglobin 27.2 pg (27.0-31.0); Mean Corpuscular Volume 84.8 fL (78.0-98.0); Mean Platelet Volume 8.2 fL (7.4-10.4); Platelet Count 174 thou/uL (130-400); RBC Distribution Width 15.4 % (11.5-14.5); Red Blood Cell (RBC) Count 2.82 mill/uL (4.70-6.10); White Blood Cell (WBC) Count 5.7 thou/uL (4.8-10.8)
[2020-10-07 18:15] LABS: ALT (SGPT) 14 U/L (8-55); AST (SGOT) 13 U/L (5-34); Albumin 3.2 g/dL (3.4-4.8); Alkaline Phosphatase 126 U/L (40-110); Anion Gap 18 mmol/L (10-20); BUN (Urea Nitrogen) 93 mg/dL (8.4-25.7); Bilirubin, Total 0.3 mg/dL (0.2-1.2); Calc. Creatinine Clearance 0 mL/min (70-130); Calcium 8.4 mg/dL (7.8-10.44); Carbon Dioxide 16 mmol/L (23-31); Chloride 111 mmol/L (98-107); Globulin 3.2 g/dL (2.4-3.5); Glucose 150 mg/dL (83-110); Potassium 5.1 mmol/L (3.5-5.1); Protein, Total 6.4 g/dL (5.8-8.1); Sodium 140 mmol/L (136-145)
[2020-10-07] MEDS ORDERED: Aspirin Chewable 81 MG TAB ONE (20:41)
[2020-10-07] MEDS ORDERED: Sodium Bicarbonate Tab 325 MG TAB PO SCH (20:45)
== END 2020-10-07 22:26 | disposition short-term general hospital (02) ==
LOC: ERS 17:24
DX: R07.9 Chest pain, unspecified (principal); D64.9 Anemia, unspecified; R42 Dizziness and giddiness; I12.0 Hypertensive chronic kidney disease with stage 5 chronic kidney disease or end stage renal disease; N18.6 End stage renal disease; I48.91 Unspecified atrial fibrillation; E11.9 Type 2 diabetes mellitus without complications; Z87.891 Personal history of nicotine dependence; Z79.82 Long term (current) use of aspirin; Z79.899 Other long term (current) drug therapy
CPT/HCPCS: 70450; 71045; 76770; 80053; 84484; 85025; 93005